=== PATIENT | female | born 1935 | race Caucasian/White ===

== ENCOUNTER 2018-01-29 10:34 | Emergency (ER) | payer MEDICARE, OTHER ==
[~2018-01-29] VITALS: Ht 157.5 cm; Wt 66.3 kg
[~2018-01-29 10:34] MED LIST: AMLODIPINE5 MG PO; AMOXICILLIN500 MG PO; ECOTRIN LOW STR81 MG PO; FUROSEMIDE20 MG PO; METOPROL TAR25 MG PO; NEXIUM40 M1 PO; NITROGLYCER0.4 MG/HR SL; PROAIR HFA IN; ROBITUSSIN AC10 ML PO; TEMAZEPAM30 MG PO; VYTORIN 10/401 TAB PO; WARFARIN2 MG PO; ZITHROMAX250 MG PO
[2018-01-29 11:37] LABS: INTERNATIONAL NORMALIZED RATIO 1.7 RATIO (0.7-1.3); PROTHROMBIN TIME 19.4 SECONDS (9.0-12.5)
[2018-01-29 12:04] VITALS: BP 131/71
== END 2018-01-29 12:12 | disposition home or self-care (01) ==
LOC: ED 10:34
PROVIDERS: Emergency Medicine
DX: S09.90XA Unspecified injury of head, initial encounter (principal); K44.9 Diaphragmatic hernia without obstruction or gangrene; I48.91 Unspecified atrial fibrillation; I10 Essential (primary) hypertension; W01.198A Fall on same level from slipping, tripping and stumbling with subsequent striking against other object, initial encounter; Y92.002 Bathroom of unspecified non-institutional (private) residence as the place of occurrence of the external cause; Z79.01 Long term (current) use of anticoagulants

== ENCOUNTER → 2018-11-19 | Outpatient (REF) | payer MEDICARE, OTHER ==
[2018-11-19 16:06] LABS: HEMATOCRIT 35.8 % (37.0-47.0); HEMOGLOBIN 11.7 g/dl (12.0-16.0); IMMATURE GRANULOCYTES 0.5 % (0.0-5.0); MEAN CELL VOLUME 101.7 fL CALC (80.0-100.0); MEAN CORPUSCULAR HGB 33.2 pG CALC (26.0-32.0); MEAN CORPUSCULAR HGB CONC 32.7 g/L CALC (32.0-36.0); NEUT# 8.68 thou/uL (2.00-7.15); RED BLOOD COUNT 3.52 mill/uL (4.20-5.60); RED CELL DISTRI WIDTH 13.7 % (11.5-15.5)
[2018-11-19 16:46] LABS: ANION GAP 15 (6-22 (CALC)); BUN 29 mg/dL (8-23); BUN/CREATININE RATIO 31 (12-20 (CALC)); CARBON DIOXIDE 28 mmol/l (22-30); CHLORIDE 102 mmol/l (95-108); CREATININE 0.9 mg/dL (0.5-1.0); GFR 60 ML/MIN (>=60 (CALC)); GFR FOR AFR.AMER. > 60 ML/MIN (>=60 (CALC)); POTASSIUM 4.2 mmol/l (3.5-5.1); SODIUM 141 mmol/l (137-146)
== END | disposition home or self-care (01) ==
LOC: LAB 15:36
PROVIDERS: ATTEND Nurse Practitioner Family
DX: R05 Cough (principal); R50.9 Fever, unspecified

== ENCOUNTER → 2018-12-03 | Outpatient (REF) | payer MEDICARE, OTHER ==
[2018-12-03 10:50] LABS: INTERNATIONAL NORMALIZED RATIO 1.8 RATIO (0.7-1.3); PROTHROMBIN TIME 18.6 SECONDS (9.0-12.5)
== END | disposition home or self-care (01) ==
LOC: CT 09:26
PROVIDERS: ATTEND Nurse Practitioner Family
DX: R91.1 Solitary pulmonary nodule (principal); Z85.118 Personal history of other malignant neoplasm of bronchus and lung; I48.2 Chronic atrial fibrillation; Z79.01 Long term (current) use of anticoagulants

== ENCOUNTER 2020-04-05 09:50 | Emergency (ER) | payer MEDICARE, OTHER ==
[~2020-04-05] VITALS: Ht 157.5 cm; Wt 62.7 kg
[2020-04-05 10:34] LABS: ALKALINE PHOSPHATASE 50 u/l (38-126); AMYLASE 35 u/l (30-110); BUN 48 mg/dL (8-23); BUN/CREATININE RATIO 71 (12-20 (CALC)); CHLORIDE 110 mmol/l (95-108); CREATININE 0.7 mg/dL (0.5-1.0); GFR > 60 ML/MIN (>=60 (CALC)); GFR FOR AFR.AMER. > 60 ML/MIN (>=60 (CALC)); LIPASE 156 u/l (23-300); SGOT/AST 23 u/l (9-36); SODIUM 137 mmol/l (137-146)
[2020-04-05 10:39] LABS: IMMATURE GRANULOCYTES 0.9 % (0.0-5.0); MEAN CELL VOLUME 104.8 fL CALC (80.0-100.0); MEAN CORPUSCULAR HGB 32.7 pG CALC (26.0-32.0); MEAN CORPUSCULAR HGB CONC 31.2 g/dL CAL (32.0-36.0); NEUT# 6.09 thou/uL (2.00-7.15); RED BLOOD COUNT 1.47 mill/uL (4.20-5.60); RED CELL DISTRI WIDTH 15.9 % (11.5-15.5)
[2020-04-05 10:43] LABS: ALBUMIN 3.3 g/dL (3.2-5.0); ANION GAP 8 (6-22 (CALC)); BILIRUBIN, TOTAL 0.4 mg/dL (0.0-1.4); CARBON DIOXIDE 22 mmol/l (22-30); INTERNATIONAL NORMALIZED RATIO 4.4 RATIO (0.7-1.3); POTASSIUM 3.4 mmol/l (3.5-5.1); PROTHROMBIN TIME 40.6 SECONDS (9.0-12.5); TOTAL PROTEIN 5.3 g/dL (6.3-8.2)
[2020-04-05 10:44] LABS: HEMATOCRIT 15.4 % (37.0-47.0); HEMOGLOBIN 4.8 g/dl (12.0-16.0)
[2020-04-05 10:47] LABS: MYOGLOBIN 32 ng/mL (0 - 62)
[2020-04-05 11:22] LABS: URINE BILIRUBIN - DIPSTICK NEGATIVE (NEGATIVE); URINE BLOOD DIPSTICK NEGATIVE (NEGATIVE); URINE COLOR YELLOW; URINE GLUCOSE - DIPSTICK NEGATIVE (NEGATIVE); URINE KETONE NEGATIVE (NEGATIVE); URINE LEUK ESTERASE NEGATIVE (NEGATIVE); URINE NITRITE - DIPSTICK NEGATIVE (Negative); URINE PROTEIN - DIPSTICK NEGATIVE (NEG-TRACE); URINE UROBILINOGEN - DIPSTICK 0.2 E.U./dL (0.2)
[2020-04-05] MEDS ORDERED: CLONIDINE0.1 MG TD (11:43)
[2020-04-05] MEDS ORDERED: ADALAT CC30 M1 (11:44)
[2020-04-05 11:47] VITALS: BP 98/45
[2020-04-05 12:32] VITALS: BP 102/51
[2020-04-05 13:36] VITALS: BP 128/48
[2020-04-05 13:47] VITALS: BP 112/47
[2020-04-05 14:01] VITALS: BP 102/49
[2020-04-05 16:10] VITALS: BP 112/47
== END 2020-04-05 14:10 | disposition short-term general hospital (02) ==
LOC: ED 09:50
PROVIDERS: Emergency Medicine
PROC: 30233N1 Transfusion of Nonautologous Red Blood Cells into Peripheral Vein, Percutaneous Approach (ICD-10-PCS; principal; 2020-04-05)
PROC: 30233N1 Transfusion of Nonautologous Red Blood Cells into Peripheral Vein, Percutaneous Approach (ICD-10-PCS; 2020-04-05)
DX: D64.9 Anemia, unspecified (principal); T45.515A Adverse effect of anticoagulants, initial encounter; I48.91 Unspecified atrial fibrillation; I10 Essential (primary) hypertension; J44.9 Chronic obstructive pulmonary disease, unspecified; Z79.01 Long term (current) use of anticoagulants; Z20.828 Contact with and (suspected) exposure to other viral communicable diseases
CPT/HCPCS: P9016; S0164

== ENCOUNTER 2020-07-20 11:08 | Inpatient (IN) | payer MEDICARE ==
[~2020-07-20] VITALS: Ht 154.9 cm; Wt 62.0 kg
[~2020-07-20 11:08] MED LIST changes: +ADALAT CC30 M1; +CLONIDINE0.1 MG TD
--- NOTE | 2020-07-20 11:38 | NUR ---
PT ARRIVED TO THE FLOOR, ACCOMPANIED BY FAMILY. VS OBTAINED, PT ORIENTED TO ROOM AND CALL COLIN SYSTEM. SAFETY PRECAUTIONS IN PLACE. WILL CONTINUE TO MONITOR.
[2020-07-20 11:40] VITALS: BP 154/71
--- NOTE | 2020-07-20 12:22 | NUR ---
PT RESTING IN BED, ALERT AND ORIENTED. RESPIRATIONS ARE EVEN AND UNLABORED ON RA. LUNGS SOUND CLEAR. PEDAL PULSES ARE WEAK. PT DENIES ANY PAIN OR DISCOMFORT AT THIS TIME. TELE IN PLACE. CALL COLIN WITHIN REACH. WILL CONTINUE TO MONITOR.
--- NOTE | 2020-07-20 13:50 | NUR ---
MONIKA POTTER AT BEDSIDE TO START IV, #22 RAC, PT TOLERATED WELL. LABS OBTAINED. SAFETY PRECAUTIONS IN PLACE. WILL CONTINUE TO MONITOR.
--- NOTE | 2020-07-20 13:56 | NUR ---
ST screen: ST is not needed at this time per SOTERO Johnson
[2020-07-20 13:58] LABS: HEMATOCRIT 25.3 % (37.0-47.0); HEMOGLOBIN 7.7 g/dl (12.0-16.0); IMMATURE GRANULOCYTES 0.4 % (0.0-5.0); MEAN CELL VOLUME 104.1 fL CALC (80.0-100.0); MEAN CORPUSCULAR HGB 31.7 pG CALC (26.0-32.0); MEAN CORPUSCULAR HGB CONC 30.4 g/dL CAL (32.0-36.0); NEUT# 3.82 thou/uL (2.00-7.15); RED BLOOD COUNT 2.43 mill/uL (4.20-5.60); RED CELL DISTRI WIDTH 13.5 % (11.5-15.5)
[2020-07-20 14:20] LABS: ALKALINE PHOSPHATASE 57 u/l (38-126); BUN 23 mg/dL (8-23); BUN/CREATININE RATIO 31 (12-20 (CALC)); CHLORIDE 102 mmol/l (95-108); CREATININE 0.7 mg/dL (0.5-1.0); GFR > 60 ML/MIN (>=60 (CALC)); GFR FOR AFR.AMER. > 60 ML/MIN (>=60 (CALC)); INTERNATIONAL NORMALIZED RATIO 1.5 RATIO (0.7-1.3); PROTHROMBIN TIME 14.9 SECONDS (9.0-12.5); SGOT/AST 26 u/l (9-36); SODIUM 136 mmol/l (137-146)
[2020-07-20 14:36] LABS: ALBUMIN 4.1 g/dL (3.2-5.0); ANION GAP 10 (6-22 (CALC)); BILIRUBIN, TOTAL 0.6 mg/dL (0.0-1.4); CARBON DIOXIDE 29 mmol/l (22-30); POTASSIUM 4.5 mmol/l (3.5-5.1); TOTAL PROTEIN 6.5 g/dL (6.3-8.2)
[2020-07-20] MEDS ORDERED: ISOSORBIDE MONO60 MG PO (15:46)
[2020-07-20] MEDS ORDERED: LASIX 40 MG TAB40 MG PO (15:47)
[2020-07-20] MEDS ORDERED: TOPROL XL100 MG PO (15:48)
[2020-07-20] MEDS ORDERED: MICARDIS80 MG PO (15:49)
[2020-07-20] MEDS ORDERED: WARFARIN2 MG PO (15:50)
[2020-07-20 16:00] VITALS: BP 123/56
--- NOTE | 2020-07-20 16:05 | NUR ---
PT UPDATED ON PLAN OF CARE. HGB 7.7 PT TO RECEIVE BLOOD. PT STATES UNDERSTANDING. SAFETY PRECAUTIONS IN PLACE. WILL CONTINUE TO MONITOR.
[2020-07-20 19:00] VITALS: BP 120/63
[2020-07-20 19:35] LABS: URINE BILIRUBIN - DIPSTICK NEGATIVE (NEGATIVE); URINE BLOOD DIPSTICK NEGATIVE (NEGATIVE); URINE CLARITY CLEAR; URINE COLOR YELLOW; URINE GLUCOSE - DIPSTICK NEGATIVE (NEGATIVE); URINE KETONE NEGATIVE (NEGATIVE); URINE LEUK ESTERASE NEGATIVE (Negative); URINE NITRITE - DIPSTICK NEGATIVE (Negative); URINE PROTEIN - DIPSTICK 30 mg/dL (NEG-TRACE); URINE SPECIFIC GRAVITY 1.025; URINE UROBILINOGEN - DIPSTICK 0.2 E.U./dL (0.2)
[2020-07-20 19:49] LABS: URINE RBC 0-2 RBC/hpf (0-5); URINE SQUAMOUS EPITHELIAL CELL FEW EPI/hpf (0-FEW); URINE WBC 0-2 WBC/hpf (0-5)
--- NOTE | 2020-07-20 20:01 | NUR ---
NURSING REPORT RECEIVED FROM NURSE. PT ASSESSMENT AND VITALS COMPLETE. PT RESTING IN BED WATCHING TV. ALERT AND ORIENTED. NO APPARENT DISTRESS NOTED. RESPIRATIONS EVEN AND UNLABORED ON RA. IV SITE APPEARS HEALTHY, PRESENTLY SL. PT DENIES ANY PAIN OR DISCOMFORT. CARDIAC SOUNDS HEARD, IRREGULAR; TELE MONITOR IN PLACE; AFIB 51 PER ED IT COMPLIANCE ANALYST. DISCUSSED POC AND SAFETY PRECAUTIONS. PT AWAITING BLOOD PRODUCT FOR ANEMIA, PT VERBALIZED UNDERSTANDING. NO CURRENT WANTS OR NEEDS. CALL LIGHT WITHIN REACH. WILL CONTINUE TO MONITOR.
--- NOTE | 2020-07-20 21:25 | NUR ---
PT RECEIVED FROM ED TO ROOM 271. ARRIVES VIA WC ACCOMPANIED BY ... RN. PT AMBULATORY TO BED. GAIT STEADY AND BALANCED. PT DENIES PAIN AT THIS TIME. ORIENTED TO UNIT, ROOM, CALL COLIN, LIGHTS, TV. ICE WATER PROVIDED. CALL COLIN WITHIN REACH. AGREES TO CALL PRN.
[2020-07-21] VITALS (12 sets, daily range): BP systolic 138–175; BP diastolic 61–94
--- NOTE | 2020-07-21 00:01 | NUR ---
PT LAYING IN BED WITH EYES CLOSED, APPEARS TO BE SLEEPING, APPEARS COMFORTABLE AND IN NO DISTRESS. RESPIRATIONS REGULAR AND UNLABORED. ITEMS REMAIN WITHIN REACH, CALL COLIN REMAINS WITHIN REACH. BED REMAINS LOCKED AND IN LOW POSITION WITH BEDRAILS UP X2. WILL CONTINUE TO MONITOR.
--- NOTE | 2020-07-21 00:15 | NUR ---
BLLOD TRANSFUSION ADMINISTERED AT 0113. WITH PT BEDSIDE FOR FIRST 15 MINUTES TO MONITOR. VITALS RECORDED PRIOR TO BLOOD ADMINISTRATION AND 15 INTO ADMINISTRATION. PT ASKED TO REPORT ANY ADVERSE REACTIONS SUCH PAIN AT IV SITE, CHILLS, DIZINESS, SKIN FLUSHING, SOB, BACK PAIN ORFLANK PAIN. WI;; CONTINUE TO CLOSELY MONITOR.
--- NOTE | 2020-07-21 01:15 | NUR ---
BLOOD TRANSFUSION ADMINISTERED AT 0113. NURSE PRESENT WITH PT BEDSIDE FOR FIRST 15 MINUTES TO MONITOR FOR ANY ADVERSE REACTIONS. VITALS RECORDED PRIOR TO BLOOD ADMINISTRATION. PT ASKED TO REPORT ANY ADVERSE REACTIONS SUCH PAIN AT IV SITE, CHILLS, DIZINESS, SKIN FLUSHING, SOB, BACK PAIN ORFLANK PAIN. WIll CONTINUE TO CLOSELY MONITOR.
--- NOTE | 2020-07-21 04:01 | NUR ---
PT RESTING IN BED, NO SIGNS OF DISTRESS NOTED, RESP EVEN AND UNLABORED. PT VOICES NO NEEDS OR COMPLAINTS AT THIS TIME. CALL LIGHT IN REACH,CONTINUE TO MONITOR.
--- NOTE | 2020-07-21 04:15 | NUR ---
PT INFUSING 2ND UNIT OF BLOOD WITH NO ADVERSE S&S. WILL CONTINUE TO MONITOR.
--- NOTE | 2020-07-21 07:00 | NUR ---
REPORT RECEIVED FROM JACKIE GÓMEZ. PT RESTING IN BED, NO S/S OF DISTRESS AT THIS TIME. SAFETY PRECAUTIONS IN PLACE. WILL CONTINUE TO MONITOR.
--- NOTE | 2020-07-21 07:17 | NUR ---
PT RESTING IN BED, ALERT AND ORIENTED. RESPIRATIONS ARE EVEN AND UNLABORED ON RA, LUNGS SOUND CLEAR. PEDAL PULSES ARE WEAK. PT DENIES ANY PAIN OR DISCOMFORT AT THIS TIME. TELE IN PLACE. CALL COLIN WITHIN REACH. WILL CONTINUE TO MONITOR.
--- NOTE | 2020-07-21 10:54 | NUR ---
PT ARRIVED TO THE FLOOR VIA WHEELCHAIR, ACCOMPANIED BY ED STAFF. PT IS ALERT AND ORIENTED. PT ASSISTED FROM WHEELCHAIR TO BED. VS OBTAINED AND ASSESSMENT COMPLETED. RESPIRATIONS ARE EVEN AND UNLABORED ON O2 @ 2L VIA NC, LUNGS SOUND DIMINISHED. PEDAL PULSES ARE WEAK. PT REPORTS MILD PAIN UNDER R BREAST WHEN INHALING. TELE IN PLACE. PT ORIENTED TO ROOM AND CALL COLIN SYSTEM. SAFETY PRECAUTIONS IN PLACE. WILL CONTINUE TO MONITOR.
[2020-07-21 11:36] LABS: MEAN CORPUSCULAR HGB 29.2 pG CALC (26.0-32.0); MEAN CORPUSCULAR HGB CONC 30.3 g/dL CAL (32.0-36.0); RED BLOOD COUNT 3.77 mill/uL (4.20-5.60); RED CELL DISTRI WIDTH 19.6 % (11.5-15.5)
[2020-07-21 11:37] LABS: HEMATOCRIT 36.3 % (37.0-47.0); MEAN CELL VOLUME 96.3 fL CALC (80.0-100.0)
[2020-07-21 11:59] LABS: ALBUMIN 4.1 g/dL (3.2-5.0); ALKALINE PHOSPHATASE 61 u/l (38-126); ANION GAP 9 (6-22 (CALC)); BUN 19 mg/dL (8-23); BUN/CREATININE RATIO 27 (12-20 (CALC)); CARBON DIOXIDE 25 mmol/l (22-30); CHLORIDE 105 mmol/l (95-108); CREATININE 0.7 mg/dL (0.5-1.0); GFR > 60 ML/MIN (>=60 (CALC)); GFR FOR AFR.AMER. > 60 ML/MIN (>=60 (CALC)); MAGNESIUM 2.1 mg/dL (1.6-2.3); POTASSIUM 4.5 mmol/l (3.5-5.1); SGOT/AST 39 u/l (9-36); SODIUM 135 mmol/l (137-146); TOTAL PROTEIN 6.7 g/dL (6.3-8.2)
[2020-07-21 12:01] LABS: BILIRUBIN, TOTAL 1.5 mg/dL (0.0-1.4)
--- NOTE | 2020-07-21 12:05 | NUR ---
PT RESTING IN BED, NO S/S OF DISTRESS AT THIS TIME. SAFETY PRECAUTIONS IN PLACE. WILL CONTINUE TO MONITOR.
[2020-07-21 14:42] LABS: INTERNATIONAL NORMALIZED RATIO 1.5 RATIO (0.7-1.3); PROTHROMBIN TIME 14.4 SECONDS (9.0-12.5)
--- NOTE | 2020-07-21 16:07 | NUR ---
PT RESTING IN BED, DAUGHTER AT BEDSIDE VISITING. PT DENIES ANY PAIN OR DISCOMFORT AT THIS TIME. SAFETY PRECAUTIONS IN PLACE. WILL CONTINUE TO MONITOR.
--- NOTE | 2020-07-21 20:01 | NUR ---
ASSIGNMENT ACCEPTED FROM NURSE MARIETTA. ASSESSMENT AND VITALS COMPLETED AT THIS TIME. RESPIRATIONS ARE EVEN AND UNLABORED PRESENTLY ON ROOM AIR. HEART RHYTHM IS IRREGULAR/AFIB WITH TELE IN PLACE. BOWEL SOUNDS ARE ACTIVE IN ALL QUADRANTS, LAST REPORTED BM 07/21/2020. RADIAL AND PEDAL PULSES ARE STRONG WITH NORMAL CAPILLARY REFILL. #22G IN RFA, SITE APPEARS HEALTHY AND PATENT. PT REQUEST PRN SLEEPING PILL; PT DENIES OF ANY PAIN OR DISCOMFORTS AT THIS TIME. ALL SAFETY PRECAUTIONS ARE IN PLACE WITH CALL LIGHT IN REACH. WILL CONTINUE TO MONITOR.
[2020-07-22 00:22] VITALS: BP 162/78
[2020-07-22 03:50] VITALS: BP 155/73
[2020-07-22 05:41] LABS: HEMATOCRIT 35.8 % (37.0-47.0); MEAN CELL VOLUME 95.2 fL CALC (80.0-100.0); MEAN CORPUSCULAR HGB 29.3 pG CALC (26.0-32.0); MEAN CORPUSCULAR HGB CONC 30.7 g/dL CAL (32.0-36.0); RED BLOOD COUNT 3.76 mill/uL (4.20-5.60); RED CELL DISTRI WIDTH 18.8 % (11.5-15.5)
[2020-07-22 06:00] LABS: ANION GAP 11 (6-22 (CALC)); BUN 18 mg/dL (8-23); BUN/CREATININE RATIO 30 (12-20 (CALC)); CARBON DIOXIDE 27 mmol/l (22-30); CHLORIDE 103 mmol/l (95-108); CREATININE 0.6 mg/dL (0.5-1.0); GFR > 60 ML/MIN (>=60 (CALC)); GFR FOR AFR.AMER. > 60 ML/MIN (>=60 (CALC)); POTASSIUM 4.4 mmol/l (3.5-5.1); SODIUM 137 mmol/l (137-146)
[2020-07-22 06:07] LABS: INTERNATIONAL NORMALIZED RATIO 1.4 RATIO (0.7-1.3); PROTHROMBIN TIME 13.4 SECONDS (9.0-12.5)
--- NOTE | 2020-07-22 07:15 | NUR ---
PT TAKEN TO THE OR VIA STRETCHER. A&O X3. DAUGHTER AT BEDSIDE. NO DISTRESS NOTED. SLOW BUT STEADY GAIT OBSERVED.
--- NOTE | 2020-07-22 09:20 | NUR ---
PT ARRIVED TO MS VIA STRETCHER ACCOMAPNIED BY MEGHANN MANAGER OF CARE. A&O X3. NO DISTRESS NOTED. PT REPORTS TO BE FEELING "OKAY" NO S/S OF RESPIRATORY DISTRESS, PT CURRENTLY REMAINS ON ROOM AIR AT THIS TIME. SLOW BUT STEADY GAIT OBSERVED. PALE APPEARANCE NOTED. DAUGHTER REMAINS AT BEDSIDE. DISCUSSED POC. CALL LIGHT IN REACH. CONTINUE TO MONITOR. CALL LIGHT IN REACH. CONTINUE TO MONITOR.
[2020-07-22 09:40] VITALS: BP 185/87
[2020-07-22 10:30] VITALS: BP 172/80
[2020-07-22] MEDS ORDERED: NEXIUM40 M1 PO (10:36)
[2020-07-22 12:38] VITALS: BP 154/81
--- NOTE | 2020-07-22 12:54 | NUR ---
Discharge instructions given. Patient verbalizes understanding of same. Discharged in stable condition via wheelchair to home accompanied by Stefany SMITHA and daughter. Pt enouraged to return if symptoms worsen or if new symptoms arise. All belongings sent with pt.
== END 2020-07-22 12:54 | disposition home or self-care (01) | DRG 811 ==
LOC: MS2 11:08
PROVIDERS: Nurse Practitioner; ADMIT Internal Medicine; ATTEND Internal Medicine
PROC: 30233N1 Transfusion of Nonautologous Red Blood Cells into Peripheral Vein, Percutaneous Approach (ICD-10-PCS; principal; 2020-07-21)
PROC: 30233N1 Transfusion of Nonautologous Red Blood Cells into Peripheral Vein, Percutaneous Approach (ICD-10-PCS; 2020-07-21)
PROC: 3E02340 Introduction of Influenza Vaccine into Muscle, Percutaneous Approach (ICD-10-PCS; 2020-07-21)
PROC: 0W3P8ZZ Control Bleeding in Gastrointestinal Tract, Via Natural or Artificial Opening Endoscopic (ICD-10-PCS; 2020-07-22)
DX: D62 Acute posthemorrhagic anemia (principal); K31.811 Angiodysplasia of stomach and duodenum with bleeding; K29.71 Gastritis, unspecified, with bleeding; I48.20 Chronic atrial fibrillation, unspecified; K44.9 Diaphragmatic hernia without obstruction or gangrene; I10 Essential (primary) hypertension; J44.9 Chronic obstructive pulmonary disease, unspecified; K21.9 Gastro-esophageal reflux disease without esophagitis; Z86.79 Personal history of other diseases of the circulatory system; Z95.1 Presence of aortocoronary bypass graft; Z79.01 Long term (current) use of anticoagulants; Z23 Encounter for immunization; Z20.828 Contact with and (suspected) exposure to other viral communicable diseases; I48.91 Unspecified atrial fibrillation; D64.9 Anemia, unspecified
CPT/HCPCS: P9016; S0164

== ENCOUNTER 2020-10-22 11:21 | Inpatient (IN) | payer MEDICARE, OTHER ==
[~2020-10-22] VITALS: Ht 154.9 cm; Wt 61.2 kg
[~2020-10-22 11:21] MED LIST changes: +ISOSORBIDE MONO60 MG PO; +LASIX 40 MG TAB40 MG PO; +MICARDIS80 MG PO; +TOPROL XL100 MG PO
--- NOTE | 2020-10-22 11:37 | NUR ---
PT TO ROOM FOR EXAM PER W/C WITH FAMILY
[2020-10-22 12:20] LABS: URINE BLOOD DIPSTICK TRACE-INTACT (NEGATIVE); URINE COLOR YELLOW; URINE GLUCOSE - DIPSTICK NEGATIVE (NEGATIVE); URINE KETONE NEGATIVE (NEGATIVE); URINE NITRITE - DIPSTICK NEGATIVE (Negative); URINE PH 5.5 (4.5-8.0); URINE PROTEIN - DIPSTICK 30 mg/dL (NEG-TRACE); URINE SPECIFIC GRAVITY >=1.030; URINE UROBILINOGEN - DIPSTICK 0.2 E.U./dL (0.2)
[2020-10-22 12:27] LABS: URINE BILIRUBIN - DIPSTICK SMALL (NEGATIVE); URINE LEUK ESTERASE SMALL (NEGATIVE)
[2020-10-22 12:30] LABS: URINE BACTERIA FEW hpf; URINE EPITHELIAL CELLS MODERATE EPI/hpf (0-FEW); URINE RBC 0-2 RBC/hpf (0-5)
[2020-10-22 13:05] LABS: HEMATOCRIT 27.9 % (37.0-47.0); HEMOGLOBIN 8.7 g/dl (12.0-16.0); IMMATURE GRANULOCYTES 0.5 % (0.0-5.0); MEAN CELL VOLUME 106.9 fL CALC (80.0-100.0); MEAN CORPUSCULAR HGB 33.3 pG CALC (26.0-32.0); MEAN CORPUSCULAR HGB CONC 31.2 g/dL CAL (32.0-36.0); NEUT# 3.73 thou/uL (2.00-7.15); RED BLOOD COUNT 2.61 mill/uL (4.20-5.60); RED CELL DISTRI WIDTH 16.4 % (11.5-15.5)
[2020-10-22 13:27] LABS: ACT PARTIAL THROMBO TIME 26.5 SECONDS (20.0-32.5); INTERNATIONAL NORMALIZED RATIO 1.8 RATIO (0.7-1.3); PROTHROMBIN TIME 17.3 SECONDS (9.0-12.5)
[2020-10-22 13:29] LABS: ALBUMIN 4.1 g/dL (3.2-5.0); ALKALINE PHOSPHATASE 64 u/l (38-126); ANION GAP 12 (6-22 (CALC)); BILIRUBIN, TOTAL 1.1 mg/dL (0.0-1.4); BUN 23 mg/dL (8-23); BUN/CREATININE RATIO 21 (12-20 (CALC)); CARBON DIOXIDE 29 mmol/l (22-30); CHLORIDE 97 mmol/l (95-108); CREATININE 1.1 mg/dL (0.5-1.0); GFR 47 ML/MIN (>=60 (CALC)); GFR FOR AFR.AMER. 57 ML/MIN (>=60 (CALC)); POTASSIUM 3.4 mmol/l (3.5-5.1); SGOT/AST 27 u/l (9-36); SODIUM 134 mmol/l (137-146); TOTAL PROTEIN 6.8 g/dL (6.3-8.2)
[2020-10-22] MEDS ORDERED: NEXIUM40 M1 PO (14:34)
[2020-10-22] MEDS ORDERED: WARFARIN2 MG PO (14:35)
--- NOTE | 2020-10-22 16:00 | NUR ---
PT AWARE OF PENDING ADMISSION PER DR BOX. PT RECEIVING ANTIBIOTICS ORDERED. PT PROVIDED BSC, ABLE TO USE WITH ASSIST FROM DAUGHTER.
--- NOTE | 2020-10-22 18:01 | NUR ---
PT HAS RECEIVED NUMEROUS ANTIBIOTICS TODAY, INCLUDING VANCO, ROCEPHIN, ZOSYN, AND ZITHROMAX. DURING THE INFUSION OF THE ZITHROMAX PT EXPERIENCED A NEAR SYNCOPAL EPISODE. DAUGHTER AT BEDSIDE SAYS THAT HER FACE TURNED RED AND THAT SHE STOPPED BREATHING. DR BOX RESPONDED, PROVIDED ORDERS FOR ZOFRAN AND SOLUMEDROL. PT WITH SUPPLEMENTAL OXYGEN PLACED AT 2 LPM NC. STRETCHER HAS BEEN PLACED IN TRENDELENBERG PER LOW BLOOD PRESSURE IN THE 80-[address] SCHULTZ WAS CONTACTED, INSTRUCTED CLOSE WATCH ON PT AND ADD ZITHROMAX TO ALLERGY LIST. PT FEELS BETTER AT THIS TIME, BP IN THE 90s. SHE TRIED TO EAT BUT ONLY ATE SOME BREAD. PT IS A PICKY EATER.
--- NOTE | 2020-10-22 19:05 | NUR ---
A/OX3 W/PP/DRY SKIN SR NO ECTOPY NO ST T CHANGES.GCS 15 NO FOCAL WEAKNWESSES SPEECH IOS CLEAR AND APPROPRIATE DENIES PAIN NO NAUSEA.
[2020-10-22 20:41] LABS: PROTHROMBIN TIME 19.1 SECONDS (9.0-12.5)
--- NOTE | 2020-10-22 20:43 | NUR ---
A/OX3 W P D SKIN SR NO ECTOPY GCS REMAINS UNCHANGED AT 15 NO FOCAL WEAKNESSES
--- NOTE | 2020-10-22 21:45 | NUR ---
PT TRANSFERRED TO HOSP BED GCS 15 UNCHANGED NO FOCAL DEFICITS SPEECH CLEAR
--- NOTE | 2020-10-22 22:40 | NUR ---
PER PT'S REQUEST TYLENOL ESTEFANI SWARTZADANDREAL HER USUAL MED TO HELP HER SLEEP BY DR PEREIRA.SPEECH CLEAR NO FOCAL DEFICITS.W/P/D SKIN
--- NOTE | 2020-10-22 23:38 | NUR ---
AWAKENED FROM SLEEP SR NO ECTOPY NO ST T CHANGES W/PP/D SKIN GCS 15 WITH NO FOCAL DEFICITS SPEECH IS CLEAR
--- NOTE | 2020-10-23 02:01 | NUR ---
UP TO COMMODE WITH ASSISTANCE TO VOID. VOIDED 350 MLS CLEAR YELLOW URINE WITHOUT DIFFICULTY. ASSISTED BACK TO BED, SIDE RAILS UP X 2. CALL COLIN WITHIN REACH. ENCOURAGED TO CALL WITH NEEDS.
[2020-10-23 06:55] LABS: HEMOGLOBIN 8.7 g/dl (12.0-16.0); IMMATURE GRANULOCYTES 0.9 % (0.0-5.0); MEAN CELL VOLUME 107.3 fL CALC (80.0-100.0); MEAN CORPUSCULAR HGB 33.3 pG CALC (26.0-32.0); MEAN CORPUSCULAR HGB CONC 31.1 g/dL CAL (32.0-36.0); NEUT# 2.88 thou/uL (2.00-7.15); RED BLOOD COUNT 2.61 mill/uL (4.20-5.60); RED CELL DISTRI WIDTH 16.6 % (11.5-15.5)
--- NOTE | 2020-10-23 07:00 | NUR ---
RECEIVED REPORT FROM TARYN MEJIA.
[2020-10-23 07:13] LABS: ALBUMIN 3.9 g/dL (3.2-5.0); BILIRUBIN, TOTAL 0.9 mg/dL (0.0-1.4); CREATININE 1.1 mg/dL (0.5-1.0); TOTAL PROTEIN 6.4 g/dL (6.3-8.2)
[2020-10-23 07:14] LABS: POTASSIUM 4.6 mmol/l (3.5-5.1)
--- NOTE | 2020-10-23 07:31 | NUR ---
MEDICATED WITH TYLENOL 650MG PO FOR C/O 5/10 HEADACHE.
--- NOTE | 2020-10-23 09:20 | NUR ---
DR SCHULTZ AT BEDSIDE.
[2020-10-23 12:00] VITALS: BP 135/77
--- NOTE | 2020-10-23 12:11 | NUR ---
ASSISTED TO BEDSIDE COMMODE WITH STAND BY ASSIST. RESPS EVEN AND UNLABORED ON ROOM AIR, VSS, MONITORS ATTACHED. DENIES PAIN OR DISCOMFORT. CALL LIGHT WITHIN REACH. WILL CONTINUE TO MONITOR.
[2020-10-23 16:00] VITALS: BP 115/83
--- NOTE | 2020-10-23 16:08 | NUR ---
REPORT CALLED TO ABBEY FRANK.
--- NOTE | 2020-10-23 16:15 | NUR ---
REPORT RECEIVED FROM JACKIE HILLMAN.
--- NOTE | 2020-10-23 16:20 | NUR ---
TO MED SURG VIA BED. TELE MONITOR IN PLACE.
[2020-10-23 16:29] VITALS: BP 122/64
--- NOTE | 2020-10-23 16:29 | NUR ---
PT ARRIVED TO MED/SURG ROOM 270 IN STABLE CONDITION VIA HOSPITAL BED;VS OBTAINED AND ASSESSMENT COMPLETED;PT A&O X3, ORIENTED TO ROOM AND CALL LIGHT SYSTEM;PT DENIES ANY CURRENT PAIN OR DISCOMFORTS,PAIN SCALE AND REPORTING EDUCATED;RESPIRATIONS EVEN AND UNLABORED ON RA,CLEAR LUNG SOUNDS;ABDOMEN SOFT ON PALPATION AND ACTIVE IN ALL 4 QUADRANTS,LAST BM 10/23/20;STRONG PEDAL PULSES;SKIN INTACT;TELE MONITORING IN PLACE;#20G TO RAC FLUSHED AND PATENT,SITE APPEARS HEALTHY;FALL AND ALLERGY BAND APPLIED TO RIGHT ARM;PT DENIES ANY ADDITIONAL NEEDS AT THIS TIME;ENCOURAGED TO CALL FOR ASSISTANCE IF NEEDED;FALL PRECAUTIONS IN PLACE WITH BED IN THE LOWEST POSITION AND CALL LIGHT IN REACH;WILL CONTINUE TO MONITOR
--- NOTE | 2020-10-23 17:05 | NUR ---
ER BENEFITS SPECIALIST, JAIME NOTIFIED WRITTER OF 10 BEAT RUN OF V-TACH;PT ASYMPTOMATIC AT THIS TIME; NOTIFIED. NO NEW ORDERS RECEIVED;WILL CONTINUE TO MONITOR
--- NOTE | 2020-10-23 17:39 | NUR ---
UPDATED DAUGHTER JORGE ON POC AND PT BEING TRANSFERRED TO MED/SURG ROOM 270. JORGE NUMBER [phone].
[2020-10-23 18:46] VITALS: BP 135/74
[2020-10-23 19:05] VITALS: BP 135/74
--- NOTE | 2020-10-23 20:00 | NUR ---
ASSESSMENT COMPLETED AT THIS TIME. NO S/O DISTRESS NOTED. CALL LIGHT AT SIDE AND PT ENCOURAGED TO CALL IF ANY NEEDS ARISE. I PLUGGED PTS PHONE BIN PACKER IN FOR HER. SHE IS AWAKE AND WATCHING TV AT THIS TIME.
--- NOTE | 2020-10-24 | NUR ---
AMMONIA DISTILLER REPORTED THAT PT CALLED HER TO THE ROOM TO ASK FOR ANOTHER SLEEPING PILL, PT WAS INFORMED THAT THEY ARE PRESCRIBED ONE PER NIGHT ONLY, PT VERBALIZED UNDERSTANDING AND ASKED FOR HER DOOR TO BE CLOSED. PT HAS BEEN LOCX4 AND STABLE ON FEET SO DOOR WAS CLOSED, BUT WE DID STILL ASK FOR HER TO CALL FOR ASSISTANCE WALKING TO RESTROOM FOR SAFETY. CALL LIGHT WITHIN REACH.
[2020-10-24 00:09] VITALS: BP 113/67
[2020-10-24 04:30] VITALS: BP 118/74
--- NOTE | 2020-10-24 04:50 | NUR ---
PT SLEEPING, NO S/O DISTRESS NOTED.
[2020-10-24 05:31] LABS: HEMATOCRIT 31.2 % (37.0-47.0); HEMOGLOBIN 9.5 g/dl (12.0-16.0); MEAN CORPUSCULAR HGB 32.9 pG CALC (26.0-32.0); MEAN CORPUSCULAR HGB CONC 30.4 g/dL CAL (32.0-36.0); RED BLOOD COUNT 2.89 mill/uL (4.20-5.60); RED CELL DISTRI WIDTH 16.9 % (11.5-15.5)
[2020-10-24 06:07] LABS: ALBUMIN 3.9 g/dL (3.2-5.0); BILIRUBIN, TOTAL 0.7 mg/dL (0.0-1.4); CREATININE 1.6 mg/dL (0.5-1.0); POTASSIUM 4.5 mmol/l (3.5-5.1); TOTAL PROTEIN 6.3 g/dL (6.3-8.2)
[2020-10-24 07:37] VITALS: BP 118/60
--- NOTE | 2020-10-24 07:37 | NUR ---
PATIENT LAYING BED AT THIS DENIES ANY PAIN CURRENTLY. MANAGER SALES TRAINING DONE SEE INTERVENIONS. SIDERAILS ARE UP X 2 CALL LIGHT WITHIN REACH.TELE IN PLACE AND BEING MONITORED BY ED
[2020-10-24 10:52] VITALS: BP 107/77
--- NOTE | 2020-10-24 11:44 | NUR ---
PATIENT RESTING IN BED DENEIS ANY NEEDS AT THIS TIME CALL LIGHT WITHIN REACH SIDERAILS UP X 2.
[2020-10-24 15:10] VITALS: BP 122/76
--- NOTE | 2020-10-24 15:50 | NUR ---
PATIENT RESTING IN BED DENIES ANY NEEDS AT THIS TIME. IV LEAKING AND REMOVED AND NEW IV TO BE STARTED. SIDERAILS ARE UP X 2 CALL LIGHT IS WITHIN REACH.
[2020-10-24 19:00] VITALS: BP 118/71
--- NOTE | 2020-10-24 20:15 | NUR ---
PT ASSESSMENT COMPLETED AT THIS TIME. NO S/O DISTRESS NOTED. PT REPORTS FEELING "A LITTLE BETTER" THAN WHEN SHE CAME IN.
--- NOTE | 2020-10-24 20:50 | NUR ---
PT MEDICATED ORDERS PROVIDE. NO S/O DISTRESS AT THIS TIME. CALL LIGHT AT SIDE AND PT ENCOURAGED TO CALL.
--- NOTE | 2020-10-25 00:15 | NUR ---
PT IS SLEEPING, NO S/O DISTRESS NOTED. CALL LIGHT AT SIDE.
--- NOTE | 2020-10-25 04:25 | NUR ---
PSYCHIATRY PHYSICIAN IN W/PT AT THIS TIME OBTAINING V/S. NO S/O DISTRESS NOTED. PT DENIES ANY NEEDS AT THIS TIME.
[2020-10-25 04:34] VITALS: BP 128/71
[2020-10-25 07:04] LABS: HEMATOCRIT 30.1 % (37.0-47.0); HEMOGLOBIN 9.2 g/dl (12.0-16.0); MEAN CELL VOLUME 109.1 fL CALC (80.0-100.0); MEAN CORPUSCULAR HGB 33.3 pG CALC (26.0-32.0); MEAN CORPUSCULAR HGB CONC 30.6 g/dL CAL (32.0-36.0); RED BLOOD COUNT 2.76 mill/uL (4.20-5.60); RED CELL DISTRI WIDTH 17.1 % (11.5-15.5)
[2020-10-25 07:15] LABS: INTERNATIONAL NORMALIZED RATIO 2.1 RATIO (0.7-1.3); PROTHROMBIN TIME 20.1 SECONDS (9.0-12.5)
[2020-10-25 07:28] LABS: ALBUMIN 3.8 g/dL (3.2-5.0); BILIRUBIN, TOTAL 0.7 mg/dL (0.0-1.4); CREATININE 1.3 mg/dL (0.5-1.0); TOTAL PROTEIN 6.1 g/dL (6.3-8.2)
[2020-10-25 07:47] VITALS: BP 128/72
--- NOTE | 2020-10-25 07:47 | NUR ---
PATIETN RESTING IN BED AT THIS TIME. PATIENT DENIES ANY NEEDS AND STATED "I FEEL REALLY GOOD TODAY". NON FOOD RECEIVING CLERK DONE AT THIS TIME CALL LIGHT IS WITHIN REACH SIDERAILS UP X 2. TELE MONITOR IN PLACE AND BEING MONITORED BY ED.
[2020-10-25 07:59] VITALS: BP 128/72
--- NOTE | 2020-10-25 08:05 | NUR ---
Patient is screened for intervention and would benefit from PT OT and ST consults
[2020-10-25] MEDS ORDERED: DOXYCYCL HYC100 MG PO (11:56)
[2020-10-25] MEDS ORDERED: KEFLEX500 M1 PO (11:56)
[2020-10-25] MEDS ORDERED: FLORASTOR250 M1 PO (11:56)
--- NOTE | 2020-10-25 12:26 | NUR ---
PATIENT SITTING UP AT BEDSIDE DENIES ANY NEEDS AT THIS TIME CALL LIGHT WITHIN REACH.
--- NOTE | 2020-10-25 14:46 | NUR ---
PATIENT D/C AT THIS TIME. PATIENT VERBALIZES UNDERSTANDING OF D/C INSTRUCTIONS.
--- NOTE | 2020-10-25 15:15 | NUR ---
Discharge instructions given. Patient verbalizes understanding of same. Discharged in stable condition via Wheelchair to Home with family. All belongings sent with pt. PATIENT WILL HAVE [facility] AT HOME.
== END 2020-10-25 15:15 | disposition home health service (06) | DRG 194 ==
LOC: ED 11:21 → ED-I 13:47 → ED 13:54 → MS2 13:55 → ED-I 13:55 → MS2 10-23 15:51
PROVIDERS: Nurse Practitioner Family; Student in an Organized Health Care Education/Training Program; ADMIT Internal Medicine; ATTEND Internal Medicine
DX: J18.9 Pneumonia, unspecified organism (principal); N39.0 Urinary tract infection, site not specified; J44.0 Chronic obstructive pulmonary disease with (acute) lower respiratory infection; I48.20 Chronic atrial fibrillation, unspecified; N17.9 Acute kidney failure, unspecified; I10 Essential (primary) hypertension; E86.0 Dehydration; D64.9 Anemia, unspecified; K44.9 Diaphragmatic hernia without obstruction or gangrene; T78.40XA Allergy, unspecified, initial encounter; T36.3X5A Adverse effect of macrolides, initial encounter; K21.9 Gastro-esophageal reflux disease without esophagitis; B96.1 Klebsiella pneumoniae [K. pneumoniae] as the cause of diseases classified elsewhere; Z79.01 Long term (current) use of anticoagulants; Z95.1 Presence of aortocoronary bypass graft; Z86.79 Personal history of other diseases of the circulatory system; Z95.818 Presence of other cardiac implants and grafts; Z20.822 Contact with and (suspected) exposure to COVID-19

== ENCOUNTER 2020-10-27 10:59 | Inpatient (IN) | payer MEDICARE, OTHER ==
[~2020-10-27] VITALS: Ht 154.9 cm; Wt 59.9 kg
[~2020-10-27 10:59] MED LIST changes: +DOXYCYCL HYC100 MG PO; +FLORASTOR250 M1 PO; +KEFLEX500 M1 PO; +WARFARIN4 MG PO
--- NOTE | 2020-10-27 11:38 | NUR ---
PATIENT ARRIVEED TO UNIT. DIRECT ADMIT
--- NOTE | 2020-10-27 12:00 | NUR ---
IV PLACED, VITALS TAKEN. NO TELE PACK AVAILABLE AT THIS TIME
[2020-10-27 12:15] VITALS: BP 162/88
[2020-10-27 12:28] LABS: MEAN CELL VOLUME 106.7 fL CALC (80.0-100.0); MEAN CORPUSCULAR HGB 33.3 pG CALC (26.0-32.0); MEAN CORPUSCULAR HGB CONC 31.3 g/dL CAL (32.0-36.0); RED CELL DISTRI WIDTH 16.6 % (11.5-15.5)
[2020-10-27 12:36] LABS: URINE BILIRUBIN - DIPSTICK NEGATIVE (NEGATIVE); URINE BLOOD DIPSTICK NEGATIVE (NEGATIVE); URINE COLOR YELLOW; URINE GLUCOSE - DIPSTICK NEGATIVE (NEGATIVE); URINE KETONE NEGATIVE (NEGATIVE); URINE LEUK ESTERASE TRACE (Negative); URINE NITRITE - DIPSTICK NEGATIVE (Negative); URINE PROTEIN - DIPSTICK 30 mg/dL (NEG-TRACE); URINE UROBILINOGEN - DIPSTICK 0.2 E.U./dL (0.2)
[2020-10-27 12:38] LABS: URINE CLARITY SL CLOUDY
[2020-10-27 12:39] LABS: URINE EPITHELIAL CELLS MANY EPI/hpf (0-FEW); URINE WBC 0-2 WBC/hpf (0-5)
[2020-10-27 12:48] LABS: ALKALINE PHOSPHATASE 79 u/l (38-126); ANION GAP 12 (6-22 (CALC)); BUN 30 mg/dL (8-23); BUN/CREATININE RATIO 32 (12-20 (CALC)); CARBON DIOXIDE 27 mmol/l (22-30); CHLORIDE 101 mmol/l (95-108); CREATININE 0.9 mg/dL (0.5-1.0); GFR 60 ML/MIN (>=60 (CALC)); GFR FOR AFR.AMER. > 60 ML/MIN (>=60 (CALC)); POTASSIUM 3.7 mmol/l (3.5-5.1); SGOT/AST 33 u/l (9-36); SODIUM 136 mmol/l (137-146); TOTAL PROTEIN 6.5 g/dL (6.3-8.2)
[2020-10-27 12:49] LABS: BILIRUBIN, TOTAL 1.1 mg/dL (0.0-1.4)
[2020-10-27 12:56] LABS: PROTHROMBIN TIME 28.1 SECONDS (9.0-12.5)
[2020-10-27 16:00] VITALS: BP 171/94
--- NOTE | 2020-10-27 16:00 | NUR ---
PATIENT DAUGHTER DROPPED OF SNACKS, LABELED AND PUT IN FRIDGE
--- NOTE | 2020-10-27 16:00 | NUR ---
BEDSIDE CHEST XRAY SHOWS NO FLUID OVERLOAD AND PNEUMONIA IN LOWER BASES
--- NOTE | 2020-10-27 17:19 | NUR ---
TELEPACK PLACED ON PATIENT
[2020-10-27 17:48] VITALS: BP 157/88
--- NOTE | 2020-10-27 18:42 | NUR ---
ORDER FOR ZOSYN FAXED TO PHARMACY, NO ZOSYN LEFT BY PHARMACY FOR PATIENT
[2020-10-27 19:00] VITALS: BP 174/94
--- NOTE | 2020-10-27 19:45 | NUR ---
PT SON CALLED FOR UPDATE PASSCODE PROVIDED TO NURSE. SONS CONCERN FOR PT RETAINING URINE, BLADDER SCANNED AT THIS TIME. 35ML NOTED, POST VOID. NO BLADDER DISTENSION NOTED. PT DENIES ANY PAIN OR DISCOMFORT AT THIS TIME.
--- NOTE | 2020-10-27 20:08 | NUR ---
PHARMACY CALLED ABOUT UNVERIFIED IV LASIX ORDER. SPOKE WITH JERRY WILL CALL BACK.
--- NOTE | 2020-10-27 20:33 | NUR ---
RESPOOLER CALLED SON BACK TO UPDATE ON BLADDER SCAN RESULTS.
[2020-10-27 22:18] VITALS: BP 152/71
[2020-10-27 23:00] VITALS: BP 154/82
--- NOTE | 2020-10-28 00:59 | NUR ---
IV ABT INITIATED. IV FLUSHED WITHOUT DIFFICULTY. PT DENIES ANY PAIN OR DISCOMFORT. PT HAS BEEN OOB SEVERAL TIMES TO VOID. NO APPARENT DISTRESS NOTED. RESPIRATIONS EVEN AND UNLABORED. DENIES ANY CURRENT WANTS OR NEEDS. CALL LIGHT WITHIN REACH. WILL CONTINUE TO MONITOR.
--- NOTE | 2020-10-28 03:58 | NUR ---
PT RESTING IN BED WITH EYES CLOSED. NO APPARENT DISTRESS NOTED. RESPIRATIONS EVEN AND UNLABORED. CALL LIGHT WITHIN REACH. WILL CONTINUE TO MONITOR.
[2020-10-28 04:00] VITALS: BP 151/81
[2020-10-28 05:28] LABS: HEMATOCRIT 31.5 % (37.0-47.0); HEMOGLOBIN 9.9 g/dl (12.0-16.0); MEAN CELL VOLUME 106.4 fL CALC (80.0-100.0); MEAN CORPUSCULAR HGB 33.4 pG CALC (26.0-32.0); MEAN CORPUSCULAR HGB CONC 31.4 g/dL CAL (32.0-36.0); RED BLOOD COUNT 2.96 mill/uL (4.20-5.60); RED CELL DISTRI WIDTH 16.7 % (11.5-15.5)
[2020-10-28 05:46] LABS: ANION GAP 13 (6-22 (CALC)); BUN 26 mg/dL (8-23); BUN/CREATININE RATIO 28 (12-20 (CALC)); CARBON DIOXIDE 28 mmol/l (22-30); CHLORIDE 101 mmol/l (95-108); CREATININE 0.9 mg/dL (0.5-1.0); GFR 60 ML/MIN (>=60 (CALC)); GFR FOR AFR.AMER. > 60 ML/MIN (>=60 (CALC)); MAGNESIUM 1.8 mg/dL (1.6-2.3); POTASSIUM 3.5 mmol/l (3.5-5.1); SODIUM 138 mmol/l (137-146)
[2020-10-28] MEDS ORDERED: CO Q-10200 M1 PO (07:48)
[2020-10-28] MEDS ORDERED: CENTRUM SILVER1 TA1 PO (07:51)
[2020-10-28] MEDS ORDERED: PROBIOTIC 1-2501 CAP PO (07:54)
[2020-10-28] MEDS ORDERED: [UNRECOGNIZED DRUG - OTHER] PO (07:56)
[2020-10-28] MEDS ORDERED: LASIX 40 MG TAB40 MG PO (07:56)
[2020-10-28] MEDS ORDERED: STIOLTO RESPIMA1 AER PO (07:58)
--- NOTE | 2020-10-28 08:45 | NUR ---
PT IN SEMI HERR'S POSITION; A/O X3; FORGETFUL AT TIMES; PT DENIES PAIN OR DISCMFORT; TELE MONITOR IN PLACE; ENCOURAGE USE OF CALL LIGHT IF ANY ASSISTANCE IS NEEDED; CALL COLIN WITHIN REACH; WILL CONTINUE TO MONITOR.
[2020-10-28 09:39] VITALS: BP 149/84
--- NOTE | 2020-10-28 10:00 | NUR ---
PT TO CT VIA WC ACCOMPANIED BY STAFF;
--- NOTE | 2020-10-28 10:20 | NUR ---
PT RETURN FROM CT; STAND BY ASSIST TO BED; NO COMPLAINTS VOICED; CALL COLIN WITHIN REACH; WILL CONTINUE TO MONITOR.
[2020-10-28 10:56] LABS: INTERNATIONAL NORMALIZED RATIO 2.5 RATIO (0.7-1.3); PROTHROMBIN TIME 23.6 SECONDS (9.0-12.5)
[2020-10-28 11:10] VITALS: BP 157/84
[2020-10-28 15:42] VITALS: BP 133/85
--- NOTE | 2020-10-28 18:03 | NUR ---
PT IN HIGH HERR POSITION; NO COMPLAINTS OR CONCERN VOICED; STAND BY ASSIST TO BRP; CALL COLIN WITHIN REACH; WILL CONTINUE TO MONITOR.
[2020-10-28 19:50] VITALS: BP 115/69
--- NOTE | 2020-10-28 20:30 | NUR ---
PT MEDICATED AND ASSESSMENT COMPLETED AT THIS TIME. NO S/O DISTRESS NOTED. CALL LIGHT AT SIDE AND PT OFFERED SNACK/PROVIDED HER SNACK FROM HOME HELD IN REFRIDGERATOR. PT DENIES ANY OTHER NEEDS AT THIS TIME.
[2020-10-28 23:50] VITALS: BP 123/73
--- NOTE | 2020-10-29 00:28 | NUR ---
IV ANTIBIOTIC THERAPY COMPLETED AT THIS TIME. PT RETURNED TO SLEEP PROMPTLY.
[2020-10-29 04:00] VITALS: BP 131/79
--- NOTE | 2020-10-29 04:40 | NUR ---
PT IS AWAKE WATCHING TV. V/S ASSESSED AND LABS DRAWN. PT DENIES ANY NEEDS AT THIS TIME. PT HAD SOME BLEEDING AT LAB DRAW SITE. GAUZE REPLACED AND PRESSURE TO SITE APPLIED. PT INSTRUCTED TO CALL IF SHE NOTICES ANY FURTHER BLEEDING. VERBALIZED UNDERSTANDING. OFFERED JUICE OR OTHER COMFORT MEASURES/DENIED.
[2020-10-29 04:57] LABS: HEMATOCRIT 29.2 % (37.0-47.0); MEAN CORPUSCULAR HGB CONC 30.8 g/dL CAL (32.0-36.0); RED BLOOD COUNT 2.73 mill/uL (4.20-5.60); RED CELL DISTRI WIDTH 16.8 % (11.5-15.5)
[2020-10-29 05:20] LABS: ANION GAP 12 (6-22 (CALC)); BUN 26 mg/dL (8-23); BUN/CREATININE RATIO 27 (12-20 (CALC)); CARBON DIOXIDE 29 mmol/l (22-30); CHLORIDE 104 mmol/l (95-108); GFR 53 ML/MIN (>=60 (CALC)); GFR FOR AFR.AMER. > 60 ML/MIN (>=60 (CALC)); MAGNESIUM 1.6 mg/dL (1.6-2.3); POTASSIUM 3.3 mmol/l (3.5-5.1); SODIUM 141 mmol/l (137-146)
[2020-10-29 08:29] VITALS: BP 146/88
--- NOTE | 2020-10-29 08:47 | NUR ---
SHIFT CHANGE REPORT, PT AWAKE ALERT AND ORIENTED SITTING UP AT BEDSIDE, NO C/O DISCOMFORT, TELE MONITOR IN PLACE, ALL NEEDS MET, CALL COLIN IN REACH.
[2020-10-29 09:01] LABS: INTERNATIONAL NORMALIZED RATIO 2.5 RATIO (0.7-1.3); PROTHROMBIN TIME 23.6 SECONDS (9.0-12.5)
[2020-10-29 10:30] VITALS: BP 136/77
--- NOTE | 2020-10-29 13:04 | NUR ---
TELE MONITOR REMOVED AND PLACED IN NSG STATION.
--- NOTE | 2020-10-29 13:05 | NUR ---
Discharge instructions given. Patient verbalizes understanding of same. Discharged in good condition via Wheelchair to Home with family. All belongings sent with pt.
--- NOTE | 2020-10-31 12:28 | NUR ---
Pneumonia post discharge follow up call completed today, 10/31/20. Pt. doing much better per daughter. No fever, chills, or unusual SOB or fatigue. Pt already had the medication prescribed at discharge and is taking without issue. Daughter has attempted to make follow up appt with PCP but keeps getting voicemail. She left a message and will continue to try to reach the PCP. No needs or questions voiced by daughter. Appreciative of call.
== END 2020-10-29 13:05 | disposition home or self-care (01) | DRG 292 ==
LOC: MS2 10:59
PROVIDERS: Internal Medicine; Nurse Practitioner; ADMIT Internal Medicine; ATTEND Internal Medicine
DX: I11.0 Hypertensive heart disease with heart failure (principal); N39.0 Urinary tract infection, site not specified; I48.20 Chronic atrial fibrillation, unspecified; N17.9 Acute kidney failure, unspecified; I50.9 Heart failure, unspecified; D64.9 Anemia, unspecified; J44.9 Chronic obstructive pulmonary disease, unspecified; K21.9 Gastro-esophageal reflux disease without esophagitis; Z95.1 Presence of aortocoronary bypass graft; Z86.79 Personal history of other diseases of the circulatory system

== ENCOUNTER 2020-12-27 | Inpatient (IN) | payer MEDICARE, OTHER ==
[~2020-12-27] MED LIST changes: +CENTRUM SILVER1 TA1 PO; +CO Q-10200 M1 PO; +PROBIOTIC 1-2501 CAP PO; +STIOLTO RESPIMA1 AER PO; +[UNRECOGNIZED DRUG - OTHER] PO
[2020-12-27 12:58] VITALS: BP 108/36
[2020-12-27 13:00] LABS: HEMATOCRIT 25.8 % (37.0-47.0); HEMOGLOBIN 7.5 g/dl (12.0-16.0); IMMATURE GRANULOCYTES 0.5 % (0.0-5.0); MEAN CELL VOLUME 99.2 fL CALC (80.0-100.0); MEAN CORPUSCULAR HGB 28.8 pG CALC (26.0-32.0); MEAN CORPUSCULAR HGB CONC 29.1 g/dL CAL (32.0-36.0); NEUT# 6.52 thou/uL (2.00-7.15); RED BLOOD COUNT 2.6 mill/uL (4.20-5.60); RED CELL DISTRI WIDTH 15.8 % (11.5-15.5)
--- NOTE | 2020-12-27 13:00 | NUR ---
PT ARRIVED TO [facility] ROOM 273 AT 1240 VIA WHEELCHAIR ACCOMPANIED BY DAUGHTER. AMBULATED TO STANDING SCALE AND BED WITH STEADY GAIT; CHANGED INTO GOWN INDEPENDENTLY. ALERT AND ORIENTED X 3; DENIES PAIN; RESPIRATIONS EVEN AND UNLABORED ON ROOM AIR. PLEASANT AND COOPERATIVE; PLAN OF CARE DISCUSSED WITH PATIENT AND DAUGHTER; ENCOURAGED TO VERBALIZE CONCERNS AND BOTH STATE UNDERSTANDING. #20G IV STARTED TO LAC AND LABS OBTAINED; COVID SWAB OBTAINED; URINE SPECIMEN OBTAINED; PT AWARE OF ORDERED STOOL SAMPLE. LAB AT BEDSIDE TO COLLECTE TYPE AND SCREE. CONSENT SIGNED FOR BLOOD TRANSFUSION. ORIENTED TO ROOM AND CALL LIGHT SYSTEM. SAFETY MEASURES IN PLACE. CALL LIGHT WITHIN REACH.
[2020-12-27 13:32] LABS: ALBUMIN 4.4 g/dL (3.2-5.0); ALKALINE PHOSPHATASE 62 u/l (38-126); ANION GAP 14 (6-22 (CALC)); BILIRUBIN, TOTAL 0.8 mg/dL (0.0-1.4); BUN 21 mg/dL (8-23); BUN/CREATININE RATIO 30 (12-20 (CALC)); CARBON DIOXIDE 30 mmol/l (22-30); CHLORIDE 96 mmol/l (95-108); CREATININE 0.7 mg/dL (0.5-1.0); GFR > 60 ML/MIN (>=60 (CALC)); GFR FOR AFR.AMER. > 60 ML/MIN (>=60 (CALC)); POTASSIUM 3.4 mmol/l (3.5-5.1); SGOT/AST 22 u/l (9-36); SODIUM 137 mmol/l (137-146); TOTAL PROTEIN 7.1 g/dL (6.3-8.2)
[2020-12-27 13:35] LABS: URINE BILIRUBIN - DIPSTICK NEGATIVE (NEGATIVE); URINE BLOOD DIPSTICK NEGATIVE (NEGATIVE); URINE COLOR YELLOW; URINE GLUCOSE - DIPSTICK NEGATIVE (NEGATIVE); URINE KETONE NEGATIVE (NEGATIVE); URINE LEUK ESTERASE TRACE (NEGATIVE); URINE PROTEIN - DIPSTICK TRACE mg/dL (NEG-TRACE); URINE SPECIFIC GRAVITY 1.015; URINE UROBILINOGEN - DIPSTICK 0.2 E.U./dL (0.2)
[2020-12-27 13:36] LABS: URINE NITRITE - DIPSTICK NEGATIVE (Negative)
[2020-12-27] MEDS ORDERED: IPRATROPIU0.5 MG/3 M IN (13:39)
[2020-12-27] MEDS ORDERED: NIFEDIPINE ER30 M1 PO (13:39)
[2020-12-27] MEDS ORDERED: [UNRECOGNIZED DRUG - OTHER] TOP (13:40)
--- NOTE | 2020-12-27 13:53 | NUR ---
RADIOLOGY AT BEDSIDE FOR PORTABLE CHEST XRAY. TELEMETRY APPLIED.
[2020-12-27 15:06] VITALS: BP 112/43
--- NOTE | 2020-12-27 15:22 | NUR ---
PT RESTING COMFORTABLY IN BED; SCHEDULED MEDICATIONS GIVEN INCLUDING VENEFOR. MAGNESIUM CURRENTLY INFUSING WITHOUT DIFFICULTY; IV SITE APPEARS HEALTHY. SNACK PROVIDED. CALL LIGHT WITHIN REACH.
[2020-12-27 18:53] VITALS: BP 118/66
[2020-12-27 18:55] LABS: HEMATOCRIT 23.3 % (37.0-47.0)
[2020-12-27 19:02] LABS: HEMOGLOBIN 6.7 g/dl (12.0-16.0)
--- NOTE | 2020-12-27 23:27 | NUR ---
PT IN BED WITH EYES CLOSED. NO S/S OF DISTRESS OR DISCOMFORT. RESPIRATIONS ARE EVEN AND NON LABORED. MEDS GIVEN AND TOLERATED WELL. IV FLUSHED WITH NO COMPLICATIONS NOTED. DRESSING INTACT TO IV SITE. CALL LIGHT IS WITHIN REACH AND WILL CONTINUE TO OBSERVE.
[2020-12-28] VITALS (12 sets, daily range): BP systolic 111–140; BP diastolic 52–74
--- NOTE | 2020-12-28 00:18 | NUR ---
BLOOD VERIFIED AND BLOOD TRANSFUSION CURRENTLY RUNNING AT 75ML/HR. NO COMPLICATIONS NOTED AT THIS TIME. AFEBRILE.
[2020-12-28 00:51] LABS: HEMOGLOBIN 6.4 g/dl (12.0-16.0)
--- NOTE | 2020-12-28 02:18 | NUR ---
PT IN BED WITH EYES CLOSED. WITH NO S/SOF DISTRESS/DISCOMFORT. CONTINUES TO HAVE BLOOD TRANSFUSION RUNNING AND TOLERATED WELL. CONTINENT OF B/B AND TRANSFERS SELF TO TOILET. VITALS ARE WITHIN REACH AND CALL LIGTH IS WITHIN REACH. WILL CONTINUE TO OBSERVE
--- NOTE | 2020-12-28 02:31 | NUR ---
BLOOD TRANSFUSION COMPLETED AND PTTOLERATED WELL.IN BED WITH EYES CLOSED AND NO DISTRESS NOTED.VITALS ARE WITHIN NORMAL LIMITS AND AFEBRILE. WILL CONTINUE TO OBSERVE.
--- NOTE | 2020-12-28 06:15 | NUR ---
PTIN BED WITH EYES CLOSED. NO S/SOF DISTRESS/DISCOMFORT. DENIES PAIN.RESPIRATION EVEN AND NON LABORED. CALL LIGTH WITHIN REACH. WILL CONTINUE TO OBSERVE.
[2020-12-28 06:19] LABS: HEMATOCRIT 26.1 % (37.0-47.0); HEMOGLOBIN 7.7 g/dl (12.0-16.0)
[2020-12-28 06:27] LABS: HEMATOCRIT 26.1 % (37.0-47.0); HEMOGLOBIN 7.7 g/dl (12.0-16.0); MEAN CELL VOLUME 97.8 fL CALC (80.0-100.0); MEAN CORPUSCULAR HGB 28.8 pG CALC (26.0-32.0); MEAN CORPUSCULAR HGB CONC 29.5 g/dL CAL (32.0-36.0); RED BLOOD COUNT 2.67 mill/uL (4.20-5.60); RED CELL DISTRI WIDTH 16.2 % (11.5-15.5)
[2020-12-28 06:57] LABS: ALKALINE PHOSPHATASE 59 u/l (38-126); BUN 21 mg/dL (8-23); BUN/CREATININE RATIO 29 (12-20 (CALC)); CARBON DIOXIDE 31 mmol/l (22-30); CHLORIDE 101 mmol/l (95-108); CREATININE 0.7 mg/dL (0.5-1.0); GFR > 60 ML/MIN (>=60 (CALC)); GFR FOR AFR.AMER. > 60 ML/MIN (>=60 (CALC)); SGOT/AST 23 u/l (9-36); SODIUM 136 mmol/l (137-146); TOTAL PROTEIN 5.8 g/dL (6.3-8.2)
[2020-12-28 07:05] LABS: ALBUMIN 3.5 g/dL (3.2-5.0); ANION GAP 8 (6-22 (CALC)); BILIRUBIN, TOTAL 1.4 mg/dL (0.0-1.4); POTASSIUM 4.2 mmol/l (3.5-5.1)
--- NOTE | 2020-12-28 07:41 | NUR ---
PT LAYING IN BED. A&O X3. NO DISTRESS NOTED. PT REPORTS TO BE FEELING "NAUSEOUS" THIS MORNING, DENIES ANY VOMITING EPISODES. DIMINSHED BREATH SOUNDS HEARD UPON AUSCULTATION. IRREGULAR HR, AFIB HEARD UPON ASSESSMENT. ACTIVE BOWEL SOUNDS X4 QUAD. SENIOR FINANCIAL CONSULTANT IN PACE. PT DENIES ANT PAIN AT THIS TME.#[address], HEALTHY AND PATENT. ASSESSMENT COMPLETED. DISCUSSED POC. CALL LIGHT WITHIN REACH.
--- NOTE | 2020-12-28 09:28 | NUR ---
Ric LUIS APRN AT BEDSIDE
[2020-12-28 09:54] LABS: INTERNATIONAL NORMALIZED RATIO 1.9 RATIO (0.7-1.3); PROTHROMBIN TIME 19.1 SECONDS (9.0-12.5)
--- NOTE | 2020-12-28 10:33 | NUR ---
CHART REVIEWED PT EVALUATION IS NOT INDICATED AT THIS TIME.
--- NOTE | 2020-12-28 11:48 | NUR ---
PT SITTING IN BED EATING LUNCH. DR FINLEY AT BEDSIDE DISCUSSING POC. CALL LIGHT WITHIN REACH.
--- NOTE | 2020-12-28 15:53 | NUR ---
BLOOD TRANSFUSION INITIATED. BLOOD VERIFIED WITH PIPO MEJIA.
--- NOTE | 2020-12-28 16:54 | NUR ---
BLOOD TRANSFUSION IN PROGRESS. NO ADVERSE REACTIONS NOTED OR REPORTED.
--- NOTE | 2020-12-28 17:30 | NUR ---
PT SITTING IN BED EATING DINNER. NO DISTRESS NOTED. BLOOD INUSING 125ML/HR. PT TOLERATING WELL. CALL LIGHT WITHIN REACH.
--- NOTE | 2020-12-28 19:10 | NUR ---
BLOOD TRANSFUSION COMPLETED. PT TOLERATED WELL. PT TOLERATED WELL.
--- NOTE | 2020-12-28 20:20 | NUR ---
PT MEDICATED ORDERS PROVIDE, NO S/O DISTRESS NOTED. PT REPORTS FEELING OKAY, NO SOB AT THIS TIME. DENIES N/V/D. ASSESSMENT COMPLETED AT THIS TIME.
[2020-12-29 00:17] VITALS: BP 121/64
[2020-12-29 04:00] VITALS: BP 120/67
--- NOTE | 2020-12-29 04:12 | NUR ---
V/S ASSESSED. NO S/O DISTRESS NOTED. ASSISTED PT TO RESTROOM AND BACK TO BED.
[2020-12-29 06:06] LABS: HEMOGLOBIN 8.7 g/dl (12.0-16.0); MEAN CELL VOLUME 96.7 fL CALC (80.0-100.0); RED CELL DISTRI WIDTH 16.3 % (11.5-15.5)
[2020-12-29 06:21] LABS: PROTHROMBIN TIME 20.3 SECONDS (9.0-12.5)
[2020-12-29 06:26] LABS: ANION GAP 11 (6-22 (CALC)); BUN 19 mg/dL (8-23); BUN/CREATININE RATIO 24 (12-20 (CALC)); CARBON DIOXIDE 30 mmol/l (22-30); CHLORIDE 98 mmol/l (95-108); CREATININE 0.8 mg/dL (0.5-1.0); GFR > 60 ML/MIN (>=60 (CALC)); GFR FOR AFR.AMER. > 60 ML/MIN (>=60 (CALC)); POTASSIUM 3.7 mmol/l (3.5-5.1); SODIUM 135 mmol/l (137-146)
--- NOTE | 2020-12-29 07:30 | NUR ---
ASSESSMENT IS COMPLETED: IV SITE IS FREE FROM REDNESS OR EDEMA. HR IS REG,PULSES ARE STRONG X4, ABD IS SOFT WITH ACTIVE BS. BREATH SOUNDS ARE CLEAR BILATERALLY. TELE MONTIOR IN PLACE. CONTINUE TO OBSERVE AND MONITOR.
[2020-12-29 07:35] VITALS: BP 125/67
[2020-12-29 10:30] VITALS: BP 128/63
--- NOTE | 2020-12-29 12:00 | NUR ---
PT IS RELAXING IN BED WITH NO DISTRESS NOTED. IV SITE IS FREE FROM REDNESS OR EDEMA.
[2020-12-29 15:13] VITALS: BP 120/67
--- NOTE | 2020-12-29 16:00 | NUR ---
PT IS RELAXING IN BED WITH NO DISTRESS NOTED. IV SITE IS FREE FROM REDNESS OR EDEMA.
[2020-12-29 19:00] VITALS: BP 124/67
--- NOTE | 2020-12-29 20:03 | NUR ---
ED CALLED TO REPORT PT IS READING ZERO ON SLOT ATTENDANT. UPON ENTERING ROOM, PT WAS FOUND SITTING ON THE SIDE OF THE BED, LOC AND WATCHING TV, WORKING PUZZLE BOOK. SHE LAUGHED AND STATED, "I AM BREATHING" BLOWING LARGE BREATHS TO DEMONSTRATE. LEADS CHECKED TO BE INTACT AND ALL LIGHTS ON. PT DENIES ANY NEEDS. SNACK AND DRINK OFFERED, DENIES.
--- NOTE | 2020-12-29 20:23 | NUR ---
PT IS SITTING ON THE SIDE OF THE BED WORKING ON A CROSSWORD PUZZLE AND WATCHING TV. SHE REPORTS FEELING WELL, "I CAN'T COMPLAIN" SHE STATED. NO S/O DISTRESS AND PT IS TALKATIVE ABOUT TV SHOWS SHE LIKES AND PUZZLES SHE WORKS ON. PT ASSESSED AT THIS TIME. SHE ASKED FOR HER ATIVAN FOR SLEEP AIDE, WILL PROVIDE ORDERS ALLOW.
[2020-12-30 00:02] VITALS: BP 147/73
--- NOTE | 2020-12-30 02:25 | NUR ---
Pt is sleeping, no s/o distress nobserved. call light is at side w/in reach.
[2020-12-30 04:05] VITALS: BP 110/57
--- NOTE | 2020-12-30 05:52 | NUR ---
LAB IN WITH PT. NO S/O DISTRESS NOTED. PT DENIES ANY NEEDS.
[2020-12-30 07:03] LABS: HEMATOCRIT 29.1 % (37.0-47.0); HEMOGLOBIN 8.8 g/dl (12.0-16.0); MEAN CELL VOLUME 97.3 fL CALC (80.0-100.0); MEAN CORPUSCULAR HGB 29.4 pG CALC (26.0-32.0); MEAN CORPUSCULAR HGB CONC 30.2 g/dL CAL (32.0-36.0); RED BLOOD COUNT 2.99 mill/uL (4.20-5.60); RED CELL DISTRI WIDTH 16.4 % (11.5-15.5)
[2020-12-30 07:25] LABS: ANION GAP 9 (6-22 (CALC)); BUN 17 mg/dL (8-23); BUN/CREATININE RATIO 24 (12-20 (CALC)); CARBON DIOXIDE 29 mmol/l (22-30); CHLORIDE 100 mmol/l (95-108); CREATININE 0.7 mg/dL (0.5-1.0); GFR > 60 ML/MIN (>=60 (CALC)); GFR FOR AFR.AMER. > 60 ML/MIN (>=60 (CALC)); POTASSIUM 3.8 mmol/l (3.5-5.1); SODIUM 135 mmol/l (137-146)
[2020-12-30 07:30] VITALS: BP 138/67
[2020-12-30 07:34] LABS: PROTHROMBIN TIME 20.6 SECONDS (9.0-12.5)
--- NOTE | 2020-12-30 07:35 | NUR ---
ASSESSMENT IS COMPLTED: IV SITE IS FREE FROM REDNESS OR EDEMA. HR IS REG,PULSES ARE STRONG X4, ABD IS SOFT WITH ACTIVE BS. BREATH SOUNDS ARE CLEAR BILATERALLY, TELE MONITOR IN PLACE. CONITNUE TO [place] AND MONITOR.
[2020-12-30 10:23] VITALS: BP 125/60
--- NOTE | 2020-12-30 12:38 | NUR ---
ALL DISCHARGE INSTRUCTIONS GIVEN TO PT. AND IV SITE AND TELE MONITOR TAKEN OFF. FAMILY IN THE ER TRANSPORTING PT HOME.
--- NOTE | 2020-12-30 12:40 | NUR ---
Discharge instructions given. Patient verbalizes understanding of same. Discharged in stable condition via Wheelchair to Home with family. All belongings sent with pt.
== END 2020-12-30 12:38 | disposition home or self-care (01) | DRG 811 ==
PROVIDERS: Nurse Practitioner; ADMIT Internal Medicine
PROC: 30233N1 Transfusion of Nonautologous Red Blood Cells into Peripheral Vein, Percutaneous Approach (ICD-10-PCS; principal; 2020-12-28)
PROC: 30233N1 Transfusion of Nonautologous Red Blood Cells into Peripheral Vein, Percutaneous Approach (ICD-10-PCS; 2020-12-28)
DX: D62 Acute posthemorrhagic anemia (principal); K55.21 Angiodysplasia of colon with hemorrhage; I48.20 Chronic atrial fibrillation, unspecified; K92.2 Gastrointestinal hemorrhage, unspecified; T45.515A Adverse effect of anticoagulants, initial encounter; I10 Essential (primary) hypertension; J44.9 Chronic obstructive pulmonary disease, unspecified; K59.00 Constipation, unspecified; K44.9 Diaphragmatic hernia without obstruction or gangrene; K21.9 Gastro-esophageal reflux disease without esophagitis; E87.6 Hypokalemia; Z95.1 Presence of aortocoronary bypass graft; Z79.01 Long term (current) use of anticoagulants; Z95.818 Presence of other cardiac implants and grafts; Z20.822 Contact with and (suspected) exposure to COVID-19
CPT/HCPCS: G0328; J1756; J3420; J3475; P9016; S0164

== ENCOUNTER 2022-01-05 14:13 | Emergency (ER) | payer OTHER, MEDICARE ==
[~2022-01-05] VITALS: Ht 154.9 cm; Wt 53.0 kg
[2022-01-05] VITALS (15 sets, daily range): BP systolic 145–193; BP diastolic 65–128
[~2022-01-05 14:13] MED LIST changes: +IPRATROPIU0.5 MG/3 M IN; +NIFEDIPINE ER30 M1 PO; +[UNRECOGNIZED DRUG - OTHER] TOP
[2022-01-05 15:02] LABS: HEMATOCRIT 34.3 % (37.0-47.0); HEMOGLOBIN 10.7 g/dl (12.0-16.0); IMMATURE GRANULOCYTES 1.3 % (0.0-5.0); MEAN CELL VOLUME 107.5 fL CALC (80.0-100.0); MEAN CORPUSCULAR HGB 33.5 pG CALC (26.0-32.0); MEAN CORPUSCULAR HGB CONC 31.2 g/dL CAL (32.0-36.0); NEUT# 4.04 thou/uL (2.00-7.15); RED BLOOD COUNT 3.19 mill/uL (4.20-5.60); RED CELL DISTRI WIDTH 13.7 % (11.5-15.5)
[2022-01-05 15:03] LABS: URINE BILIRUBIN - DIPSTICK NEGATIVE (NEGATIVE); URINE BLOOD DIPSTICK NEGATIVE (NEGATIVE); URINE COLOR YELLOW; URINE GLUCOSE - DIPSTICK NEGATIVE (NEGATIVE); URINE KETONE NEGATIVE (NEGATIVE); URINE LEUK ESTERASE NEGATIVE (NEGATIVE); URINE PH 6.5 (4.5-8.0); URINE PROTEIN - DIPSTICK NEGATIVE (NEG-TRACE); URINE UROBILINOGEN - DIPSTICK 0.2 E.U./dL (0.2)
[2022-01-05 15:10] LABS: URINE NITRITE - DIPSTICK NEGATIVE (Negative)
[2022-01-05 15:31] LABS: ALBUMIN 4.7 g/dL (3.2-5.0); ALKALINE PHOSPHATASE 67 u/l (38-126); ANION GAP 14 (6-22 (CALC)); BILIRUBIN, TOTAL 0.8 mg/dL (0.0-1.4); BUN 20 mg/dL (8-23); BUN/CREATININE RATIO 25 (12-20 (CALC)); CARBON DIOXIDE 28 mmol/l (22-30); CHLORIDE 102 mmol/l (95-108); CREATININE 0.8 mg/dL (0.5-1.0); GFR > 60 ML/MIN (>=60 (CALC)); GFR FOR AFR.AMER. > 60 ML/MIN (>=60 (CALC)); LIPASE 243 u/l (23-300); POTASSIUM 4.5 mmol/l (3.5-5.1); SGOT/AST 33 u/l (9-36); SODIUM 140 mmol/l (137-146); TOTAL PROTEIN 7.7 g/dL (6.3-8.2)
[2022-01-05 15:42] LABS: MYOGLOBIN 215 ng/mL (0 - 62)
[2022-01-05 19:40] LABS: PROTHROMBIN TIME 10.7 SECONDS (9.0-12.5)
== END 2022-01-05 20:15 | disposition short-term general hospital (02) | DRG 552 ==
LOC: ED 14:13
PROVIDERS: Family Medicine; Nurse Practitioner
DX: S12.600A Unspecified displaced fracture of seventh cervical vertebra, initial encounter for closed fracture (principal); S41.111A Laceration without foreign body of right upper arm, initial encounter; I11.0 Hypertensive heart disease with heart failure; I50.9 Heart failure, unspecified; I48.91 Unspecified atrial fibrillation; J44.9 Chronic obstructive pulmonary disease, unspecified; K21.9 Gastro-esophageal reflux disease without esophagitis; V49.50XA Passenger injured in collision with unspecified motor vehicles in traffic accident, initial encounter; Z86.73 Personal history of transient ischemic attack (TIA), and cerebral infarction without residual deficits
CPT/HCPCS: Q9967

== ENCOUNTER 2022-06-25 18:21 | Inpatient (IN) | payer MEDICARE, OTHER ==
[~2022-06-25] VITALS: Ht 157.5 cm; Wt 58.0 kg
[2022-06-25] VITALS (12 sets, daily range): BP systolic 93–149; BP diastolic 64–93
--- NOTE | 2022-06-25 18:21 | NUR ---
PATIENT TO ED VIA EMS.
--- NOTE | 2022-06-25 19:00 | NUR ---
TRANSITION OF CARE BEDSIDE REPORT TO REINALDO MEJIA
--- NOTE | 2022-06-25 19:00 | NUR ---
ASSUMED CARE OF PT. PT. RECEIVING NEB TX AT PRESENT. SLIGHTLY TACHYPNEIC, O2 SAT 98%. ON O2 AT 4L NC. PT. A&OX3. FAMILY AT BEDSIDE
[2022-06-25 19:13] LABS: HEMATOCRIT 33.1 % (37.0-47.0); HEMOGLOBIN 9.9 g/dl (12.0-16.0); IMMATURE GRANULOCYTES 2.2 % (0.0-5.0); MEAN CELL VOLUME 115.3 fL CALC (80.0-100.0); MEAN CORPUSCULAR HGB 34.5 pG CALC (26.0-32.0); MEAN CORPUSCULAR HGB CONC 29.9 g/dL CAL (32.0-36.0); NEUT# 5.85 thou/uL (2.00-7.15); RED BLOOD COUNT 2.87 mill/uL (4.20-5.60); RED CELL DISTRI WIDTH 15.4 % (11.5-15.5)
--- NOTE | 2022-06-25 19:20 | NUR ---
NEB TX COMPLETED. RESP EFFORT SLIGHTLY TACHYPNEIC 02 SAT 96% ON 2L NC
[2022-06-25 19:25] LABS: ALBUMIN 4.5 g/dL (3.2-5.0); CREATININE 1.1 mg/dL (0.5-1.0); POTASSIUM 4.8 mmol/l (3.5-5.1); TOTAL PROTEIN 7.4 g/dL (6.3-8.2)
[2022-06-25 19:29] LABS: BILIRUBIN, TOTAL 0.8 mg/dL (0.0-1.4)
--- NOTE | 2022-06-25 20:10 | NUR ---
FAMILY AT BEDSIDE. PT.RESTING QUUIETLY NO DISTRESS NOTED
[2022-06-25] MEDS ORDERED: METOPROLOL SUCC50 MG PO (20:39)
[2022-06-25] MEDS ORDERED: NORVASC2.5 M1 PO (20:40)
[2022-06-25] MEDS ORDERED: ISOSORB MONO20 MG PO (20:40)
[2022-06-25] MEDS ORDERED: IRON28 M1 PO (20:43)
[2022-06-25] MEDS ORDERED: VITAMIN C + PO (20:48)
[2022-06-25] MEDS ORDERED: ASPIRIN ENTERIC81 MG PO (20:49)
[2022-06-25] MEDS ORDERED: MULTI VIT PO (20:50)
[2022-06-25] MEDS ORDERED: CALCI17 PO (20:50)
[2022-06-25] MEDS ORDERED: CO Q 1010 MG PO (20:51)
[2022-06-25] MEDS ORDERED: VITAMIN B PO (20:52)
[2022-06-25] MEDS ORDERED: REMERON7.5 MG PO (20:53)
[2022-06-25] MEDS ORDERED: MELATONIN10 M1 PO (20:54)
[2022-06-25] MEDS ORDERED: ASPRUZYO SPRIN500 MG PO (20:55)
--- NOTE | 2022-06-25 21:10 | NUR ---
CARDIZEM VIA PUMP AT 10MG/HR ORDERED. PT. 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
--- NOTE | 2022-06-25 22:30 | NUR ---
PT. TRANSPORTED IA STRETCHER TO ICU 5 REPORT AT [facility].
--- NOTE | 2022-06-25 23:43 | NUR ---
called md for orders for wheezing and sleep. will wait for orders
[2022-06-26] VITALS (34 sets, daily range): BP systolic 113–154; BP diastolic 53–117
--- NOTE | 2022-06-26 00:16 | NUR ---
pt is recieving neb treatment. will give lasix and meletonin as requested by patient. vitals stable. cardizem at 10mg/hr. hr within normal range.will continue to monitor.
--- NOTE | 2022-06-26 04:35 | NUR ---
pt resting in bed. no wheezing. comfortable. vitls stable. call ryan within reach
[2022-06-26 05:45] LABS: HEMATOCRIT 31.9 % (37.0-47.0); HEMOGLOBIN 9.6 g/dl (12.0-16.0); MEAN CELL VOLUME 113.1 fL CALC (80.0-100.0); MEAN CORPUSCULAR HGB CONC 30.1 g/dL CAL (32.0-36.0); RED BLOOD COUNT 2.82 mill/uL (4.20-5.60); RED CELL DISTRI WIDTH 15.4 % (11.5-15.5)
[2022-06-26 06:18] LABS: ANION GAP 16 (6-22 (CALC)); BUN 21 mg/dL (8-23); BUN/CREATININE RATIO 24 (12-20 (CALC)); CARBON DIOXIDE 25 mmol/l (22-30); CHLORIDE 104 mmol/l (95-108); CREATININE 0.9 mg/dL (0.5-1.0); GFR FOR AFR.AMER. > 60 ML/MIN (>=60 (CALC)); GFR OTHER RACES 59 ML/MIN (>=60 (CALC)); MAGNESIUM 1.8 mg/dL (1.6-2.3); POTASSIUM 4.3 mmol/l (3.5-5.1); SODIUM 141 mmol/l (137-146)
--- NOTE | 2022-06-26 06:38 | NUR ---
vibramycin not in pixis or shelf in cabinet stocked
--- NOTE | 2022-06-26 07:00 | NUR ---
Recieved patient. Patient resting in bed. Vitals WNl. No complaints of pain at this time. Assessment completed. Patient on 2L o2, breathing unlabored.
--- NOTE | 2022-06-26 07:18 | NUR ---
spoke to md and reported keep cardizem off bc there is no continous order. rate 60s. vitals stable.
--- NOTE | 2022-06-26 11:58 | NUR ---
Patient resting in bed. Vitals WNL. Patient has no complaints of pain at this time. Patient's daughter was bedside most of the AM, and Dr. Desouza provided a bedside update to patient and daughter.
--- NOTE | 2022-06-26 15:47 | NUR ---
PT ARRIVED TO [facility] ROOM 268 VIA WHEELCHAIR ACCOMPAINED BY ICU STAFF. PT A/OX3. SOB ON EXCERTION. 2L NC. LUNG SOUNDS CLEAR. HEART RHYTHM IRREGULAR, AFIB PER ER MONITORING. #20G LAC AND #20G LH PATENT. SKIN INTACT. PT DENIES OF ANY PAINS OR DISCOMFORTS. PT ORIENTED TO ROOM AND CALL SYSTEM. ALL SAFTEY PRECAUTIONS IN PLACE
--- NOTE | 2022-06-26 19:50 | NUR ---
PT RESTING IN BED WATCHING TV, NO SIGNS OF DISTRESS NOTED, RESP EVEN AND UNLABORED. PT ALERT AND ORIENTED X3, FORGETFUL AT TIMES, PT INQUIRING ABOUT IV, INFORMED PT THAT IV SITE MUST REMAIN FOR IV ANTIBIOTICS, VERBLIZED UNDERSTANDING. 02 2L NC, IV TO SL, FLUSHED AND INITIATED IV ROCEPHING. DISCUSSED POC, VERBALIZED UNDERSTADING, PT DECLINED TEDS, BED ALARM FOR SAFETY, CALL LIGHT IN REACH,CONTINUE TO MONITOR.
--- NOTE | 2022-06-27 | NUR ---
PT RESTING IN BED WITH EYES CLOSED, NO SIGNS OF DISTRESS NOTED, RESP EVEN AND UNLABORED. CALL LIGHT IN REACH,CONTINUE TO MONITOR.
--- NOTE | 2022-06-27 04:03 | NUR ---
PT RESTING IN BED WITH EYES CLOSED, NO SIGNS OF DISTRESS NOTED, RESP EVEN AND UNLABORED. BED ALARM FOR SAFETY, CALL LIGHT IN REACH,CONTINUE TO MONITOR.
[2022-06-27 04:14] VITALS: BP 108/61
[2022-06-27 05:30] LABS: HEMATOCRIT 31.5 % (37.0-47.0); HEMOGLOBIN 9.5 g/dl (12.0-16.0); MEAN CELL VOLUME 115.4 fL CALC (80.0-100.0); MEAN CORPUSCULAR HGB 34.8 pG CALC (26.0-32.0); MEAN CORPUSCULAR HGB CONC 30.2 g/dL CAL (32.0-36.0); RED BLOOD COUNT 2.73 mill/uL (4.20-5.60)
[2022-06-27 05:57] LABS: CREATININE 1.1 mg/dL (0.5-1.0); MAGNESIUM 2.1 mg/dL (1.6-2.3); POTASSIUM 4.7 mmol/l (3.5-5.1)
--- NOTE | 2022-06-27 06:27 | NUR ---
PT RESTING IN BED, ATTEMPTED TO START ANTIBITOTIC, PT C/O BURNING TO IV SITE. NO SIGNS OF INFILTRATION NOTED, BUT WHEN FLUSHED WITH NS PT STATES IT ARAUJO. DISCUSSED PLACING A NEW IV SITE. PT DECLINED STATES SHE HAS HAD ENOUGH ANTIBIOTICS AND DOES NOT WANT TO BE STUCK AGAIN. WILL NOTIFY , CALL LIGHT IN REACH,CONTINUE TO MONITOR.
[2022-06-27 07:00] VITALS: BP 131/76
--- NOTE | 2022-06-27 07:19 | NUR ---
RECIEVED BEDSIDE REPORT. PT A/OX3. RESPIRATIONS EVEN AND UNLABORED ON 2L NC. LUNG SOUNDS CLEAR. HEART RHYTHM NORMAL. BOWEL SOUNDS ACTIVE. PULSES STRONG.TRACE EDEMA NOTED. SKIN INTACT.#22G LFA PATENT. PT DENIES OF ANY PAINS OR DISCOMFORTS AT THIS TIME. ALL SAFTEY PRECAUTIONS ARE IN PLACE WITH CALL LIGHT IN REACH. PT INSTRUCTED TO CALL FOR ASSISTANCE
--- NOTE | 2022-06-27 11:33 | NUR ---
CODE BROWN, VERTICAL MOVE PER POLICY. PATIENT MOVED AT 1105 INTO [facility] 8
--- NOTE | 2022-06-27 13:00 | NUR ---
PT TRANSFERRED TO ROOM 8 IN [facility] DEPT, REPORT RECEIVED FROM LESA. PT ALERT AND ORIENTED RESTING IN BED, NO C/O DISCOMFORT AT THIS TIME, BED IN LOWEST POSITION AND CALL COLIN IN REACH.
[2022-06-27 15:40] VITALS: BP 137/56
--- NOTE | 2022-06-27 16:00 | NUR ---
PT SLEEPING AT THIS TIME, BREATHING EVEN AND NON-LABORED, NO SIGN DISCOMFORT, CALL COLIN IN REACH AND BED LOCKED IN LOWEST POSITION.
[2022-06-27 19:00] VITALS: BP 136/47
[2022-06-28] VITALS (8 sets, daily range): BP systolic 127–144; BP diastolic 42–78
[2022-06-28 06:28] LABS: HEMATOCRIT 31.6 % (37.0-47.0); HEMOGLOBIN 9.6 g/dl (12.0-16.0); MEAN CELL VOLUME 116.6 fL CALC (80.0-100.0); MEAN CORPUSCULAR HGB 35.4 pG CALC (26.0-32.0); MEAN CORPUSCULAR HGB CONC 30.4 g/dL CAL (32.0-36.0); RED BLOOD COUNT 2.71 mill/uL (4.20-5.60); RED CELL DISTRI WIDTH 15.9 % (11.5-15.5)
[2022-06-28 06:45] LABS: ANION GAP 11 (6-22 (CALC)); BUN 40 mg/dL (8-23); BUN/CREATININE RATIO 52 (12-20 (CALC)); CARBON DIOXIDE 29 mmol/l (22-30); CHLORIDE 102 mmol/l (95-108); CREATININE 0.8 mg/dL (0.5-1.0); GFR FOR AFR.AMER. > 60 ML/MIN (>=60 (CALC)); GFR OTHER RACES > 60 ML/MIN (>=60 (CALC)); POTASSIUM 4.7 mmol/l (3.5-5.1); SODIUM 137 mmol/l (137-146)
--- NOTE | 2022-06-28 08:06 | NUR ---
PT RESTING IN SEMI FOWLERS POSITION. RESPIRATIONS EVEN AND UNLABORED ON ROOM AIR., 96%. LUNG SOUNDS CLEAR. HEART RHYTHM NORMAL. BOWEL SOUNDS ACTIVE. #22F LFA PATENT. SKIN INTACT. 1+ EDEMA NOTED TO BLE. PEDAL PULSES STRONG. PT DENIES OF ANY NEEDS. ALL SAFTEY PRECAUTIONS ARE IN PLACE WITH CALL LIGHT IN REACH
[2022-06-28 09:23] LABS: HEMATOCRIT 31.5 % (37.0-47.0); HEMOGLOBIN 9.5 g/dl (12.0-16.0); IMMATURE GRANULOCYTES 0.5 % (0.0-5.0); MEAN CELL VOLUME 116.7 fL CALC (80.0-100.0); MEAN CORPUSCULAR HGB 35.2 pG CALC (26.0-32.0); MEAN CORPUSCULAR HGB CONC 30.2 g/dL CAL (32.0-36.0); NEUT# 12.73 thou/uL (2.00-7.15); RED BLOOD COUNT 2.7 mill/uL (4.20-5.60); RED CELL DISTRI WIDTH 15.8 % (11.5-15.5)
--- NOTE | 2022-06-28 13:12 | NUR ---
PT SITTING UP IN RECYLINER. RESPIRATIONS EVEN AND UNLABORED ON ROOM AIR. #22G LFA PATENT. TELE MONITORING IN PLACE. FAMILY UPDATED ON PT STATUS. PT DENIES OF ANY NEEDS. ALL SAFETY PRECAUTIONS ARE IN PLACE WITH CALL LIGHT IN REACH
--- NOTE | 2022-06-28 16:10 | NUR ---
PT RESTING IN SEMI FOWLERS POSITION. RESPIRATIONS EVEN AND UNLABORED ON ROOM AIR. TELE MONITORING IN PLACE. #22G LFA PATENT. PT DNEIES OF ANY NEEDS. ALL SAFTEY PRECAUTIONS ARE IN PLACE WITH CALL LIGHT IN REACH
--- NOTE | 2022-06-28 18:24 | NUR ---
#20G LFA INFILTARTED. PT EDUCATED ON NEED FOR NEW IV. PT REFUSING. DR AMATO INFORMED. ATMOSPHERIC PHYSICS PROFESSOR INFORMED THAT ABX WILL BE CHANGED TO PO AND NO IV NEEDED.
--- NOTE | 2022-06-28 19:00 | NUR ---
PATIENT SITTING ON THE SIDE OF THE BED-AWAKE ALERT AND ORIENTEDX3. PATIENT WITH NO COMPLAINTS EXCEPT THAT SHE DOES NOT WANT ANY MORE IV'S PLACED. NEW ORDERS FOR ORAL ANTIBIOTICS RECEIEVED. TELE MONITOR IN PLACE AND READING A-FIB 70'S. ANXIOUS FOR DISCHARGE TOMORROW. LUNGS ARE CLEAR. ABD IS SOFT. BS+-STATES THAT HER LAST BM WAS YESTERDAY. UP TO THE BSC TO VOID WITH MIN ASSIST. SAFETY PRECAUTIONS REINFORCED. CALL LIGHT IN REACH. WILL CONT TO MONITOR.
--- NOTE | 2022-06-28 22:05 | NUR ---
PATIENT RESTING IN BED-PATIENT HAD HS SNACK AND REQUESTING SLEEPING PILL. MEDICATGED WITH MELOTONIN 6MG PO, SAFETY PRECAUTIONS REINFORCED. CALL LIGHT IN REACH. WILL CONT TO MONITOR.
[2022-06-29 00:30] VITALS: BP 145/78
--- NOTE | 2022-06-29 01:00 | NUR ---
PATIENT RESTING IN BED-EYES ARE CLOSED AND RESPS ARE EVEN AND UNLABORED. TELE MONITOR IN PLACE WITH LAST READING A-FIB 73. NO IV SITE AT THIS TIME-MD IS AWARE. CALL LIGHT IN REACH. WILL CONT TO MONITOR.
[2022-06-29 04:05] LABS: HEMATOCRIT 29.5 % (37.0-47.0); HEMOGLOBIN 9.1 g/dl (12.0-16.0); MEAN CELL VOLUME 113.9 fL CALC (80.0-100.0); MEAN CORPUSCULAR HGB 35.1 pG CALC (26.0-32.0); MEAN CORPUSCULAR HGB CONC 30.8 g/dL CAL (32.0-36.0); RED BLOOD COUNT 2.59 mill/uL (4.20-5.60); RED CELL DISTRI WIDTH 15.3 % (11.5-15.5)
[2022-06-29 04:10] VITALS: BP 140/67
[2022-06-29 04:34] LABS: ANION GAP 12 (6-22 (CALC)); BUN 41 mg/dL (8-23); BUN/CREATININE RATIO 60 (12-20 (CALC)); CARBON DIOXIDE 27 mmol/l (22-30); CHLORIDE 103 mmol/l (95-108); CREATININE 0.7 mg/dL (0.5-1.0); GFR FOR AFR.AMER. > 60 ML/MIN (>=60 (CALC)); GFR OTHER RACES > 60 ML/MIN (>=60 (CALC)); POTASSIUM 3.8 mmol/l (3.5-5.1); SODIUM 138 mmol/l (137-146)
[2022-06-29] MEDS ORDERED: VIBRAMYCIN100 M2 PO (09:52)
[2022-06-29] MEDS ORDERED: PREDNISONE10 MG PO (09:56)
[2022-06-29 09:58] VITALS: BP 124/63
[2022-06-29 11:03] VITALS: BP 129/55
--- NOTE | 2022-06-29 12:00 | NUR ---
PATIENT IN BED RESTING. PATIENT HAS DISCHARGE ORDERS. SPOKE TO PATIENT AND DAUGHTER. DAUGHTER IS NOW ON HER WAY TO [employer] SPECIALIST PATIENT. PATIENT IS FINISHING LUNCH AND THEN WILL BE READY TO GO AFTER. CALL LIGHT AND BEDSIDE TABLE WITH IN REACH AND I ADVISED PATIENT TO CALL WHEN SHE IS READY. PATIENT VERBALIZED UNDERSTANDING.
--- NOTE | 2022-06-29 14:34 | NUR ---
Discharge instructions given. Patient verbalizes understanding of same. Discharged in stable condition via Wheelchair to Home with family. All belongings sent with pt.
== END 2022-06-29 13:51 | disposition home health service (06) | DRG 308 ==
LOC: ED 18:21 → ICU 20:50 → MS2 06-26 15:38
PROVIDERS: Family Medicine; ADMIT Internal Medicine; ATTEND Internal Medicine
DX: I48.91 Unspecified atrial fibrillation (principal); J18.9 Pneumonia, unspecified organism; J96.01 Acute respiratory failure with hypoxia; E87.2 Acidosis; J44.1 Chronic obstructive pulmonary disease with (acute) exacerbation; J44.0 Chronic obstructive pulmonary disease with (acute) lower respiratory infection; I11.0 Hypertensive heart disease with heart failure; I50.9 Heart failure, unspecified; K21.9 Gastro-esophageal reflux disease without esophagitis; D50.0 Iron deficiency anemia secondary to blood loss (chronic); Z86.73 Personal history of transient ischemic attack (TIA), and cerebral infarction without residual deficits; Z95.1 Presence of aortocoronary bypass graft; Z95.818 Presence of other cardiac implants and grafts; Z20.822 Contact with and (suspected) exposure to COVID-19; D50.9 Iron deficiency anemia, unspecified

== ENCOUNTER 2022-11-29 09:47 | Observation (INO) | payer MEDICARE, OTHER ==
[~2022-11-29] VITALS: Ht 157.5 cm; Wt 60.0 kg
[~2022-11-29 09:47] MED LIST changes: +ASPIRIN ENTERIC81 MG PO; +ASPRUZYO SPRIN500 MG PO; +CALCI17 PO; +CO Q 1010 MG PO; +IRON28 M1 PO; +ISOSORB MONO20 MG PO; +MELATONIN10 M1 PO; +METOPROLOL SUCC50 MG PO; +MULTI VIT PO; +NORVASC2.5 M1 PO; +PREDNISONE10 MG PO; +REMERON7.5 MG PO; +VIBRAMYCIN100 M2 PO; +VITAMIN B PO; +VITAMIN C + PO
[2022-11-29 10:00] VITALS: BP 126/66
[2022-11-29 10:09] VITALS: BP 126/66
[2022-11-29 12:06] LABS: BASO% 0.7 % (0-3); EOS% 2.6 % (0-8); HEMATOCRIT 27.1 % (37.0-47.0); HEMOGLOBIN 7.8 g/dl (12.0-16.0); IMMATURE GRANULOCYTES 0.2 % (0.0-5.0); LYMPH% 6.6 % (15-41); MEAN CELL VOLUME 113.4 fL CALC (80.0-100.0); MEAN CORPUSCULAR HGB 32.6 pG CALC (26.0-32.0); MEAN CORPUSCULAR HGB CONC 28.8 g/dL CAL (32.0-36.0); MONO% 6.6 % (2-13); NEUT# 4.45 thou/uL (2.00-7.15); NEUT% 83.3 % (42-76); RED BLOOD COUNT 2.39 mill/uL (4.20-5.60); RED CELL DISTRI WIDTH 15.7 % (11.5-15.5)
[2022-11-29 12:12] LABS: BILIRUBIN, TOTAL 0.4 mg/dL (0.02-1.3); CREATININE 1.3 mg/dL (0.5-1.0); POTASSIUM 3.6 mmol/l (3.5-5.1); TOTAL PROTEIN 6.3 g/dL (6.3-8.2)
[2022-11-29 12:38] LABS: URINE BILIRUBIN - DIPSTICK NEGATIVE (NEGATIVE); URINE BLOOD DIPSTICK TRACE-INTACT (NEGATIVE); URINE COLOR YELLOW; URINE GLUCOSE - DIPSTICK NEGATIVE (NEGATIVE); URINE KETONE NEGATIVE (NEGATIVE); URINE PH 5.5 (4.5-8.0); URINE PROTEIN - DIPSTICK 30 mg/dL (NEG-TRACE); URINE UROBILINOGEN - DIPSTICK 0.2 E.U./dL (0.2)
[2022-11-29 12:39] LABS: URINE BACTERIA FEW hpf; URINE EPITHELIAL CELLS MODERATE EPI/hpf (0-FEW); URINE LEUK ESTERASE MODERATE (NEGATIVE); URINE NITRITE - DIPSTICK NEGATIVE (Negative); URINE RBC 0-2 RBC/hpf (0-5)
[2022-11-29 14:36] VITALS: BP 102/42
[2022-11-29 19:03] VITALS: BP 120/64
[2022-11-30] VITALS (8 sets, daily range): BP systolic 111–154; BP diastolic 56–80
[2022-11-30 05:40] LABS: BASO% 1.4 % (0-3); EOS% 5.6 % (0-8); HEMATOCRIT 27.9 % (37.0-47.0); HEMOGLOBIN 8.1 g/dl (12.0-16.0); IMMATURE GRANULOCYTES 0.5 % (0.0-5.0); LYMPH% 13.3 % (15-41); MEAN CORPUSCULAR HGB 32.5 pG CALC (26.0-32.0); MONO% 9.3 % (2-13); NEUT% 69.9 % (42-76); RED BLOOD COUNT 2.49 mill/uL (4.20-5.60); RED CELL DISTRI WIDTH 16.1 % (11.5-15.5)
[2022-11-30 05:51] LABS: ALBUMIN 3.9 g/dL (3.2-5.0); BILIRUBIN, TOTAL 0.4 mg/dL (0.02-1.3); CREATININE 1.3 mg/dL (0.5-1.0); POTASSIUM 3.9 mmol/l (3.5-5.1)
== END 2022-11-30 14:19 | disposition home health service (06) ==
LOC: MS2 09:47
PROVIDERS: Nurse Practitioner Family; ADMIT Internal Medicine; ATTEND Internal Medicine
PROC: 30233N1 Transfusion of Nonautologous Red Blood Cells into Peripheral Vein, Percutaneous Approach (ICD-10-PCS; principal; 2022-11-30)
DX: D62 Acute posthemorrhagic anemia (principal); I11.0 Hypertensive heart disease with heart failure; I50.9 Heart failure, unspecified; K92.2 Gastrointestinal hemorrhage, unspecified; I48.20 Chronic atrial fibrillation, unspecified; J44.9 Chronic obstructive pulmonary disease, unspecified; K21.9 Gastro-esophageal reflux disease without esophagitis; Z86.79 Personal history of other diseases of the circulatory system; Z95.1 Presence of aortocoronary bypass graft; Z95.818 Presence of other cardiac implants and grafts
CPT/HCPCS: G0328; J1756; P9016

== ENCOUNTER 2023-06-01 11:41 | Emergency (ER) | payer MEDICARE, OTHER ==
[2023-06-01] VITALS (7 sets, daily range): BP systolic 104–126; BP diastolic 52–65
[~2023-06-01] VITALS: Ht 157.5 cm; Wt 57.8 kg
[2023-06-01 13:56] LABS: BASO% 0.9 % (0-3); EOS% 3.2 % (0-8); HEMATOCRIT 33.1 % (37.0-47.0); HEMOGLOBIN 10.4 g/dl (12.0-16.0); IMMATURE GRANULOCYTES 0.2 % (0.0-5.0); LYMPH% 8.4 % (15-41); MEAN CELL VOLUME 108.2 fL CALC (80.0-100.0); MEAN CORPUSCULAR HGB CONC 31.4 g/dL CAL (32.0-36.0); MONO% 6.1 % (2-13); NEUT# 5.29 thou/uL (2.00-7.15); NEUT% 81.2 % (42-76); RED BLOOD COUNT 3.06 mill/uL (4.20-5.60); RED CELL DISTRI WIDTH 14.9 % (11.5-15.5)
[2023-06-01 14:31] LABS: ALBUMIN 4.3 g/dL (3.2-5.0); ALKALINE PHOSPHATASE 65 u/l (38-126); ANION GAP 13 (6-22 (CALC)); BUN 16 mg/dL (8-23); BUN/CREATININE RATIO 19 (12-20 (CALC)); CARBON DIOXIDE 31 mmol/l (22-30); CHLORIDE 100 mmol/l (95-108); CREATININE 0.8 mg/dL (0.5-1.0); GFR FOR AFR.AMER. > 60 ML/MIN (>=60 (CALC)); GFR OTHER RACES > 60 ML/MIN (>=60 (CALC)); POTASSIUM 3.3 mmol/l (3.5-5.1); SGOT/AST 30 u/l (9-36); SODIUM 140 mmol/l (137-146); TOTAL PROTEIN 7.1 g/dL (6.3-8.2)
[2023-06-01 14:32] LABS: BILIRUBIN, TOTAL 1.3 mg/dL (0.02-1.3)
[2023-06-01] MEDS ORDERED: IPRATROPIU0.5 MG/3 M IN (15:02)
[2023-06-01] MEDS ORDERED: DOXY-CAPS100 MG PO (15:02)
[2023-06-01] MEDS ORDERED: PREDNISONE50 MG PO (15:02)
== END 2023-06-01 15:35 | disposition home or self-care (01) ==
LOC: ED 11:41
PROVIDERS: Family Medicine
DX: J44.0 Chronic obstructive pulmonary disease with (acute) lower respiratory infection (principal); J20.9 Acute bronchitis, unspecified; I11.0 Hypertensive heart disease with heart failure; I50.9 Heart failure, unspecified; I48.91 Unspecified atrial fibrillation; Z95.818 Presence of other cardiac implants and grafts; Z20.822 Contact with and (suspected) exposure to COVID-19

== ENCOUNTER 2024-04-01 08:39 | Inpatient (IN) | payer MEDICARE, OTHER ==
[2024-04-01] VITALS (36 sets, daily range): BP systolic 90–178; BP diastolic 48–162
[~2024-04-01] VITALS: Ht 154.9 cm; Wt 51.0 kg
[~2024-04-01 08:39] MED LIST changes: +DOXY-CAPS100 MG PO; +ISOSORB MONO10 MG PO; +POT CHLORIDE10 ME5 PO; +PREDNISONE50 MG PO
[2024-04-01 09:12] LABS: BASO% 0.2 % (0-3); EOS% 0.1 % (0-8); HEMATOCRIT 30.7 % (37.0-47.0); HEMOGLOBIN 9.5 g/dl (12.0-16.0); IMMATURE GRANULOCYTES 0.4 % (0.0-5.0); LYMPH% 2.9 % (15-41); MEAN CORPUSCULAR HGB 34.7 pG CALC (26.0-32.0); MEAN CORPUSCULAR HGB CONC 30.9 g/dL CAL (32.0-36.0); MONO% 7.8 % (2-13); NEUT# 12.9 thou/uL (2.00-7.15); NEUT% 88.6 % (42-76); RED BLOOD COUNT 2.74 mill/uL (4.20-5.60); RED CELL DISTRI WIDTH 14.4 % (11.5-15.5)
[2024-04-01 09:24] LABS: ALBUMIN 4.3 g/dL (3.2-5.0); CREATININE 0.7 mg/dL (0.5-1.0); POTASSIUM 3.4 mmol/l (3.5-5.1); TOTAL PROTEIN 7.3 g/dL (6.3-8.2)
[2024-04-01 09:26] LABS: BILIRUBIN, TOTAL 1.9 mg/dL (0.02-1.3)
[2024-04-01] MEDS ORDERED: IPRATROPIUM-Albuterol 0.5MG-2.5MG/3 ML NEB ONE ×2 (11:30)
[2024-04-01] MEDS ORDERED: methylPREDNISolone SODIUM SUCC 125 MG/2 ML SDV IV ONE (11:30)
[2024-04-01] MEDS ORDERED: VANCOMYCIN HCL 1 GM in SODIUM CHLORIDE 0.9% 250 ML IV ONE (11:50)
[2024-04-01] MEDS ORDERED: SODIUM CHLORIDE 0.9% 1,000 ML IV ONE (11:50)
[2024-04-01] MEDS ORDERED: PIPERACILLIN Sodium-Tazobactam 3.375 GM in SODIUM CHLORIDE 0.9% 100 ML IV ONE (11:50)
[2024-04-01] MEDS ORDERED: VANCOMYCIN HCL 1 GM/VIAL IV ONE (11:59)
[2024-04-01] MEDS ORDERED: guaiFENesin-CODEINE 200-20 MG/10 ML UDC PO ONE (12:40)
[2024-04-01] MEDS ORDERED: FUROSEMIDE 40 MG/4 ML SDV IV ONE (14:45)
[2024-04-01] MEDS ORDERED: SODIUM CHLORIDE 0.9% 500 ML IV ONE (15:20)
[2024-04-01] MEDS ORDERED: DILTIAZEM HCL 125 MG in SODIUM CHLORIDE 0.9% 100 ML IV ONE (15:20)
[2024-04-01] MEDS ORDERED: DILTIAZEM HCL 25 MG/5 ML SDV IV ONE (15:20)
[2024-04-01] MEDS ORDERED: MAGNESIUM HYDROXIDE 30 ML UDC PO PRN (16:25)
[2024-04-01] MEDS ORDERED: ACETAMINOPHEN 325 MG/TAB PO PRN (16:25)
[2024-04-01] MEDS ORDERED: MELATONIN 3 MG/TAB PO PRN (16:40)
[2024-04-01] MEDS ORDERED: PIPERACILLIN Sodium-Tazobactam 3.375 GM in SODIUM CHLORIDE 0.9% 100 ML IV SCH (18:00)
[2024-04-01] MEDS ORDERED: LORazepam 2 MG/ML IV PRN (19:40)
[2024-04-01 19:41] LABS: URINE BILIRUBIN - DIPSTICK Negative (NEGATIVE); URINE BLOOD DIPSTICK Moderate (NEGATIVE); URINE GLUCOSE - DIPSTICK Negative (NEGATIVE); URINE KETONE Negative (NEGATIVE); URINE LEUK ESTERASE Negative (NEGATIVE); URINE NITRITE - DIPSTICK Negative (Negative); URINE PROTEIN - DIPSTICK 30 mg/dL (NEG-TRACE)
[2024-04-01 19:45] LABS: URINE COLOR Yellow; URINE WBC 0-2 WBC/hpf (0-5)
[2024-04-01 19:46] LABS: URINE SQUAMOUS EPITHELIAL CELL FEW EPI/hpf (0-FEW)
[2024-04-01] MEDS ORDERED: GUAIFENESIN 600 MG/TAB PO SCH (21:00)
[2024-04-01] MEDS ORDERED: CLARIFY DOSE IV SCH (21:00)
[2024-04-01] MEDS ORDERED: METOPROLOL TARTRATE 25 MG/TAB PO SCH (21:00)
[2024-04-01] MEDS ORDERED: methylPREDNISolone Sod Succ 40 MG/ML SDV IV SCH (21:00)
[2024-04-01] MEDS ORDERED: ENOXAPARIN SODIUM 40 MG/0.4 ML SYR SC SCH (21:00)
[2024-04-01] MEDS ORDERED: IPRATROPIUM-Albuterol 0.5MG-2.5MG/3 ML NEB SCH (23:00)
[2024-04-01] MEDS ORDERED: IPRATROPIUM BROMIDE 0.5 MG/2.5 ML SOL IN SCH (23:00)
[2024-04-01] MEDS ORDERED: LEVALBUTEROL HCL 1.25 MG/3 ML VIAL NEB SCH (23:00)
[2024-04-02] VITALS (25 sets, daily range): BP systolic 93–149; BP diastolic 50–76
[2024-04-02 06:31] LABS: BASO% 0.1 % (0-3); HEMOGLOBIN 8.7 g/dl (12.0-16.0); IMMATURE GRANULOCYTES 0.9 % (0.0-5.0); LYMPH% 1.9 % (15-41); MEAN CELL VOLUME 115.8 fL CALC (80.0-100.0); MEAN CORPUSCULAR HGB 33.6 pG CALC (26.0-32.0); MONO% 3.8 % (2-13); NEUT# 12.06 thou/uL (2.00-7.15); NEUT% 93.3 % (42-76); RED BLOOD COUNT 2.59 mill/uL (4.20-5.60); RED CELL DISTRI WIDTH 14.7 % (11.5-15.5)
[2024-04-02 06:51] LABS: ALBUMIN 3.5 g/dL (3.2-5.0); BILIRUBIN, TOTAL 1.3 mg/dL (0.02-1.3); CHOLESTEROL HDL RATIO 4.5 (<4.4 (CALC)); CREATININE 0.8 mg/dL (0.5-1.0); MAGNESIUM 1.8 mg/dL (1.6-2.3); POTASSIUM 3.5 mmol/l (3.5-5.1); TOTAL PROTEIN 6.1 g/dL (6.3-8.2)
[2024-04-02] MEDS ORDERED: PANTOPRAZOLE SODIUM Sesquihydr 40 MG/TAB PO SCH (09:00)
[2024-04-02] MEDS ORDERED: FUROSEMIDE 40 MG/4 ML SDV IV SCH ×2 (09:00→10:00)
[2024-04-02] MEDS ORDERED: METOPROLOL TARTRATE 5 MG/5 ML VIAL IV PRN (09:45)
[2024-04-02] MEDS ORDERED: LORazepam 2 MG/ML IV SCH (11:00)
[2024-04-02] MEDS ORDERED: VANCOMYCIN HCL 750 MG in SODIUM CHLORIDE 0.9% 235 ML IV SCH (16:00)
[2024-04-02] MEDS ORDERED: LORazepam 2 MG/ML IV PRN (17:00)
[2024-04-03] VITALS (23 sets, daily range): BP systolic 128–151; BP diastolic 64–117
[2024-04-03 05:07] LABS: BASO% 0.1 % (0-3); HEMOGLOBIN 8.6 g/dl (12.0-16.0); IMMATURE GRANULOCYTES 1.8 % (0.0-5.0); MEAN CELL VOLUME 113.8 fL CALC (80.0-100.0); MEAN CORPUSCULAR HGB CONC 30.7 g/dL CAL (32.0-36.0); MONO% 2.7 % (2-13); NEUT# 10.05 thou/uL (2.00-7.15); NEUT% 93.4 % (42-76); RED BLOOD COUNT 2.46 mill/uL (4.20-5.60); RED CELL DISTRI WIDTH 14.6 % (11.5-15.5)
[2024-04-03 05:10] LABS: ALBUMIN 3.5 g/dL (3.2-5.0); BILIRUBIN, TOTAL 1.2 mg/dL (0.02-1.3); CREATININE 1.1 mg/dL (0.5-1.0); MAGNESIUM 2.1 mg/dL (1.6-2.3); TOTAL PROTEIN 5.9 g/dL (6.3-8.2)
[2024-04-03] MEDS ORDERED: Pantoprazole Sodium 40 MG VIAL (Protonix) IV SCH (08:00)
[2024-04-03] MEDS ORDERED: METOPROLOL TARTRATE 5 MG/5 ML VIAL IV PRN (09:01)
[2024-04-03 09:35] LABS: POTASSIUM 2.8 mmol/l (3.5-5.1)
[2024-04-03] MEDS ORDERED: CEFEPIME HYDROCHLORIDE 1 GM in SODIUM CHLORIDE 0.9% 50 ML IV SCH (12:00)
[2024-04-03 12:16] LABS: HEMOGLOBIN 8.7 g/dl (12.0-16.0)
[2024-04-03 18:28] LABS: HEMATOCRIT 28.6 % (37.0-47.0); HEMOGLOBIN 8.6 g/dl (12.0-16.0)
[2024-04-03] MEDS ORDERED: METOPROLOL TARTRATE 50 MG/TAB PO SCH (21:00)
[2024-04-04] VITALS (41 sets, daily range): BP systolic 130–174; BP diastolic 63–101
[2024-04-04 06:12] LABS: ALBUMIN 3.7 g/dL (3.2-5.0); BILIRUBIN, TOTAL 1.1 mg/dL (0.02-1.3); CREATININE 1.1 mg/dL (0.5-1.0); MAGNESIUM 2.2 mg/dL (1.6-2.3); POTASSIUM 2.9 mmol/l (3.5-5.1); TOTAL PROTEIN 6.2 g/dL (6.3-8.2)
[2024-04-04 06:15] LABS: BASO% 0.1 % (0-3); HEMATOCRIT 29.5 % (37.0-47.0); HEMOGLOBIN 9.1 g/dl (12.0-16.0); LYMPH% 3.2 % (15-41); MEAN CELL VOLUME 112.2 fL CALC (80.0-100.0); MEAN CORPUSCULAR HGB 34.6 pG CALC (26.0-32.0); MEAN CORPUSCULAR HGB CONC 30.8 g/dL CAL (32.0-36.0); MONO% 3.3 % (2-13); NEUT# 12.04 thou/uL (2.00-7.15); NEUT% 85.6 % (42-76); RED BLOOD COUNT 2.63 mill/uL (4.20-5.60); RED CELL DISTRI WIDTH 14.8 % (11.5-15.5)
[2024-04-04 06:16] LABS: IMMATURE GRANULOCYTES 7.8 % (0.0-5.0)
[2024-04-04] MEDS ORDERED: POTASSIUM CHLORIDE 20MEQ 100 ML IV SCH ×2 (07:20→09:30)
[2024-04-04] MEDS ORDERED: amLODIPine BESYLATE 2.5 MG/TAB PO SCH (09:00)
[2024-04-04] MEDS ORDERED: FUROSEMIDE 40 MG/4 ML SDV IV SCH (09:00)
[2024-04-04] MEDS ORDERED: ISOSORBIDE MONONITRATE 30 MG TAB PO SCH (09:00)
[2024-04-04] MEDS ORDERED: ONDANSETRON HCl 4 MG/2 ML SDV IV PRN (09:05)
[2024-04-04] MEDS ORDERED: ARTIFICIAL TEARS SOLUTION 15 ML/BTL OU PRN (10:00)
[2024-04-04] MEDS ORDERED: VANCOMYCIN HCL 1 GM in SODIUM CHLORIDE 0.9% 250 ML IV SCH (16:00)
[2024-04-04] MEDS ORDERED: MIRTAZAPINE 15 MG/TAB PO SCH (21:00)
[2024-04-04] MEDS ORDERED: QUEtiapine FUMERATE 25 MG/TAB PO SCH (21:00)
[2024-04-04] MEDS ORDERED: YEAST (S. BOULARDII)(S. CEREVI 250 MG CAP PO SCH (21:00)
[2024-04-05] VITALS (43 sets, daily range): BP systolic 114–155; BP diastolic 60–92
[2024-04-05 05:39] LABS: BASO% 0.1 % (0-3); HEMATOCRIT 27.6 % (37.0-47.0); HEMOGLOBIN 8.7 g/dl (12.0-16.0); LYMPH% 4.5 % (15-41); MEAN CELL VOLUME 111.3 fL CALC (80.0-100.0); MEAN CORPUSCULAR HGB 35.1 pG CALC (26.0-32.0); MEAN CORPUSCULAR HGB CONC 31.5 g/dL CAL (32.0-36.0); MONO% 5.2 % (2-13); NEUT# 10.75 thou/uL (2.00-7.15); NEUT% 78.3 % (42-76); RED BLOOD COUNT 2.48 mill/uL (4.20-5.60); RED CELL DISTRI WIDTH 14.9 % (11.5-15.5)
[2024-04-05 05:47] LABS: IMMATURE GRANULOCYTES 11.9 % (0.0-5.0)
[2024-04-05 05:55] LABS: ALBUMIN 3.4 g/dL (3.2-5.0); BILIRUBIN, TOTAL 1.1 mg/dL (0.02-1.3); CREATININE 0.9 mg/dL (0.5-1.0); MAGNESIUM 2.3 mg/dL (1.6-2.3); POTASSIUM 3.2 mmol/l (3.5-5.1); TOTAL PROTEIN 5.9 g/dL (6.3-8.2)
[2024-04-05] MEDS ORDERED: methylPREDNISolone Sod Succ 40 MG/ML SDV IV SCH (09:00)
[2024-04-05] MEDS ORDERED: POTASSIUM CHLORIDE 20 MEQ/TAB PO SCH (09:30)
[2024-04-05] MEDS ORDERED: Heparin SODIUM (Porcine) 5,000 UNITS/ML SDV SC SCH (21:00)
[2024-04-06] VITALS (15 sets, daily range): BP systolic 124–158; BP diastolic 59–84
[2024-04-06 05:09] LABS: ALBUMIN 3.2 g/dL (3.2-5.0); BASO% 0.2 % (0-3); BILIRUBIN, TOTAL 0.8 mg/dL (0.02-1.3); CREATININE 0.9 mg/dL (0.5-1.0); EOS% 0.1 % (0-8); HEMATOCRIT 28.4 % (37.0-47.0); HEMOGLOBIN 8.6 g/dl (12.0-16.0); LYMPH% 4.3 % (15-41); MAGNESIUM 2.3 mg/dL (1.6-2.3); MEAN CELL VOLUME 113.6 fL CALC (80.0-100.0); MEAN CORPUSCULAR HGB 34.4 pG CALC (26.0-32.0); MEAN CORPUSCULAR HGB CONC 30.3 g/dL CAL (32.0-36.0); MONO% 4.1 % (2-13); NEUT# 11.38 thou/uL (2.00-7.15); NEUT% 77.1 % (42-76); RED BLOOD COUNT 2.5 mill/uL (4.20-5.60); RED CELL DISTRI WIDTH 14.9 % (11.5-15.5); TOTAL PROTEIN 5.4 g/dL (6.3-8.2)
[2024-04-06 05:11] LABS: IMMATURE GRANULOCYTES 14.2 % (0.0-5.0)
[2024-04-06 05:35] LABS: POTASSIUM 3.9 mmol/l (3.5-5.1)
[2024-04-06] MEDS ORDERED: LEVALBUTEROL HCL 1.25 MG/3 ML VIAL NEB PRN (08:41)
[2024-04-06] MEDS ORDERED: IPRATROPIUM BROMIDE 0.5 MG/2.5 ML SOL IN PRN (08:41)
[2024-04-06] MEDS ORDERED: FUROSEMIDE 40 MG/TAB PO SCH (09:00)
[2024-04-07] VITALS (12 sets, daily range): BP systolic 125–165; BP diastolic 65–132
[2024-04-07 07:03] LABS: ALBUMIN 3.3 g/dL (3.2-5.0); BILIRUBIN, TOTAL 0.9 mg/dL (0.02-1.3); CREATININE 0.8 mg/dL (0.5-1.0); MAGNESIUM 2.1 mg/dL (1.6-2.3); POTASSIUM 3.6 mmol/l (3.5-5.1); TOTAL PROTEIN 5.5 g/dL (6.3-8.2)
[2024-04-07 07:45] LABS: BASO% 0.1 % (0-3); EOS% 2.2 % (0-8); HEMATOCRIT 29.5 % (37.0-47.0); LYMPH% 4.3 % (15-41); MEAN CELL VOLUME 114.8 fL CALC (80.0-100.0); MEAN CORPUSCULAR HGB CONC 30.5 g/dL CAL (32.0-36.0); MONO% 3.1 % (2-13); NEUT# 13.87 thou/uL (2.00-7.15); RED BLOOD COUNT 2.57 mill/uL (4.20-5.60); RED CELL DISTRI WIDTH 15.5 % (11.5-15.5)
[2024-04-07 08:13] LABS: IMMATURE GRANULOCYTES 12.3 % (0.0-5.0)
[2024-04-07] MEDS ORDERED: amLODIPine BESYLATE 5 MG/TAB PO SCH (09:00)
[2024-04-07 12:47] LABS: HEMATOCRIT 30.3 % (37.0-47.0); HEMOGLOBIN 9.2 g/dl (12.0-16.0)
[2024-04-07 16:38] LABS: HEMATOCRIT 30.5 % (37.0-47.0); HEMOGLOBIN 9.3 g/dl (12.0-16.0); MEAN CELL VOLUME 113.8 fL CALC (80.0-100.0); MEAN CORPUSCULAR HGB 34.7 pG CALC (26.0-32.0); MEAN CORPUSCULAR HGB CONC 30.5 g/dL CAL (32.0-36.0); RED BLOOD COUNT 2.68 mill/uL (4.20-5.60); RED CELL DISTRI WIDTH 15.5 % (11.5-15.5)
[2024-04-08] VITALS: BP 139/65
[2024-04-08 04:00] VITALS: BP 144/65
[2024-04-08 04:47] VITALS: BP 144/65
[2024-04-08 05:44] LABS: BASO% 0.1 % (0-3); EOS% 2.6 % (0-8); HEMATOCRIT 29.9 % (37.0-47.0); HEMOGLOBIN 9.1 g/dl (12.0-16.0); LYMPH% 3.7 % (15-41); MEAN CORPUSCULAR HGB CONC 30.4 g/dL CAL (32.0-36.0); NEUT# 14.49 thou/uL (2.00-7.15); NEUT% 82.7 % (42-76); RED BLOOD COUNT 2.6 mill/uL (4.20-5.60); RED CELL DISTRI WIDTH 15.7 % (11.5-15.5)
[2024-04-08 05:55] LABS: ALBUMIN 3.2 g/dL (3.2-5.0); BILIRUBIN, TOTAL 0.8 mg/dL (0.02-1.3); MAGNESIUM 1.9 mg/dL (1.6-2.3); POTASSIUM 3.6 mmol/l (3.5-5.1); TOTAL PROTEIN 5.4 g/dL (6.3-8.2)
[2024-04-08 05:59] LABS: CREATININE 0.6 mg/dL (0.5-1.0); IMMATURE GRANULOCYTES 7.9 % (0.0-5.0)
[2024-04-08] MEDS ORDERED: AMOX/K CLAV875 M1 PO (06:19)
[2024-04-08 06:55] VITALS: BP 154/64
[2024-04-08 10:25] VITALS: BP 140/61
[2024-04-08] MEDS ORDERED: EPOETIN ALFA-EPBX 4,000 UNIT/ML VIAL SC SCH (11:00)
[2024-04-08] MEDS ORDERED: EPOETIN ALFA-EPBX 20,000 UNIT/ML VIAL SC SCH (11:00)
[2024-04-09] MEDS ORDERED: PANTOPRAZOLE SODIUM Sesquihydr 40 MG/TAB PO SCH (09:00)
== END 2024-04-08 15:05 | DRG 871 ==
LOC: ED 08:39 → ED-I 14:30 → ED 14:42 → ICU 14:43 → MS2 14:43
PROVIDERS: Family Medicine; ADMIT Student in an Organized Health Care Education/Training Program; ATTEND Student in an Organized Health Care Education/Training Program
PROC: 5A09457 Assistance with Respiratory Ventilation, 24-96 Consecutive Hours, Continuous Positive Airway Pressure (ICD-10-PCS; principal; 2024-04-01)
PROC: 06JYXZZ Inspection of Lower Vein, External Approach (ICD-10-PCS; 2024-04-01)
PROC: 05JYXZZ Inspection of Upper Vein, External Approach (ICD-10-PCS; 2024-04-01)
PROC: 02HV33Z Insertion of Infusion Device into Superior Vena Cava, Percutaneous Approach (ICD-10-PCS; 2024-04-01)
PROC: 5A0945A Assistance with Respiratory Ventilation, 24-96 Consecutive Hours, High Flow/Velocity Cannula (ICD-10-PCS; 2024-04-02)
DX: A41.9 Sepsis, unspecified organism (principal); I21.A1 Myocardial infarction type 2; J18.9 Pneumonia, unspecified organism; J96.01 Acute respiratory failure with hypoxia; J96.22 Acute and chronic respiratory failure with hypercapnia; J44.0 Chronic obstructive pulmonary disease with (acute) lower respiratory infection; J44.1 Chronic obstructive pulmonary disease with (acute) exacerbation; R65.20 Severe sepsis without septic shock; I11.0 Hypertensive heart disease with heart failure; I50.9 Heart failure, unspecified; I25.10 Atherosclerotic heart disease of native coronary artery without angina pectoris; I48.91 Unspecified atrial fibrillation; K21.9 Gastro-esophageal reflux disease without esophagitis; R31.9 Hematuria, unspecified; D72.829 Elevated white blood cell count, unspecified; T38.0X5A Adverse effect of glucocorticoids and synthetic analogues, initial encounter; Z95.1 Presence of aortocoronary bypass graft; Z90.2 Acquired absence of lung [part of]; Z95.818 Presence of other cardiac implants and grafts; Z87.19 Personal history of other diseases of the digestive system; Z87.01 Personal history of pneumonia (recurrent); Z85.118 Personal history of other malignant neoplasm of bronchus and lung; Z20.822 Contact with and (suspected) exposure to COVID-19; Z87.891 Personal history of nicotine dependence
CPT/HCPCS: J0692; J1650; J2060; J2470; J3370; Q5106 EC; Q9967

== ENCOUNTER 2024-04-21 11:50 | Inpatient (IN) | payer MEDICARE, OTHER ==
[~2024-04-21] VITALS: Ht 154.9 cm; Wt 52.3 kg
[2024-04-21] VITALS (40 sets, daily range): BP systolic 96–151; BP diastolic 47–78
[~2024-04-21 11:50] MED LIST changes: +AMOX/K CLAV875 M1 PO; +ROCURONIUM BROMIDE 10 MG/ML 5ML VIAL IV ONE
--- NOTE | 2024-04-21 11:50 | NUR ---
PATIENT ARRIVES VIA EMS WITH ROSC IN A-FIB
[2024-04-21] MEDS ORDERED: SODIUM CHLORIDE 0.9% 1,000 ML IV ONE (12:30)
[2024-04-21] MEDS ORDERED: AMIODARONE HCL IV ONE (12:35)
[2024-04-21] MEDS ORDERED: SODIUM CHLORIDE IV ONE (12:35)
[2024-04-21] MEDS ORDERED: NOREPINEPHRINE BITARTRATE 4 MG in SODIUM CHLORIDE 0.9% 250 ML IV SCH (12:35)
[2024-04-21] MEDS ORDERED: PROPOFOL 100 ML IV SCH (12:35)
[2024-04-21 12:38] LABS: BASO% 0.4 % (0-3); EOS% 0.3 % (0-8); HEMOGLOBIN 7.3 g/dl (12.0-16.0); IMMATURE GRANULOCYTES 3.7 % (0.0-5.0); LYMPH% 16.2 % (15-41); MEAN CELL VOLUME 108.2 fL CALC (80.0-100.0); MEAN CORPUSCULAR HGB 31.6 pG CALC (26.0-32.0); MEAN CORPUSCULAR HGB CONC 29.2 g/dL CAL (32.0-36.0); NEUT# 7.25 thou/uL (2.00-7.15); NEUT% 77.4 % (42-76); RED BLOOD COUNT 2.31 mill/uL (4.20-5.60); RED CELL DISTRI WIDTH 27.4 % (11.5-15.5)
[2024-04-21 12:48] LABS: ALBUMIN 2.9 g/dL (3.2-5.0); BILIRUBIN, TOTAL 1.1 mg/dL (0.02-1.3); POTASSIUM 3.6 mmol/l (3.5-5.1)
[2024-04-21] MEDS ORDERED: PIPERACILLIN Sodium-Tazobactam 3.375 GM in SODIUM CHLORIDE 0.9% 100 ML IV ONE (13:15)
[2024-04-21] MEDS ORDERED: VANCOMYCIN HCL 1 GM in SODIUM CHLORIDE 0.9% 250 ML IV ONE (13:15)
[2024-04-21] MEDS ORDERED: DEXAMETHASONE SOD. PHOSPHATE 10 MG/ML VIAL IV ONE (13:15)
[2024-04-21] MEDS ORDERED: ROCURONIUM BROMIDE 10 MG/ML 5ML VIAL IV ONE (14:05)
[2024-04-21] MEDS ORDERED: SODIUM CHLORIDE 0.9% 500 ML IV ONE ×2 (14:10→17:25)
[2024-04-21] MEDS ORDERED: amioDARONE HCl 450 MG in SODIUM CHLORIDE 250 ML IV ONE (14:10)
[2024-04-21] MEDS ORDERED: CEFEPIME HYDROCHLORIDE 2 GM in SODIUM CHLORIDE 0.9% 100 ML IV ONE (14:10)
[2024-04-21] MEDS ORDERED: SODIUM CHLORIDE 250 ML IV ONE (14:15)
[2024-04-21] MEDS ORDERED: SODIUM CHLORIDE 0.9% 1,000 ML IV PRN (15:30)
[2024-04-21] MEDS ORDERED: Pantoprazole Sodium 40 MG VIAL (Protonix) IV SCH (16:00)
--- NOTE | 2024-04-21 16:00 | NUR ---
Patient came up from ED with RN and RT. Patient intubated, on propofol at 5, levo at 14 to maintain MAP greater than 65 and amio gtts. Patient is unresponsive to painful stimuli, pupils reactive but sluggish. Whiteside in place. Patient has wound on coccyx and wound on chest. Pictures taken. Family at bedside. NG tube advanced per XR suggestions. New XR ordered. All needs addressed and questions answered.
[2024-04-21] MEDS ORDERED: amioDARONE HCl 450 MG in SODIUM CHLORIDE 250 ML IV PRN (16:25)
[2024-04-21] MEDS ORDERED: NOREPINEPHRINE BITARTRATE 4 MG in SODIUM CHLORIDE 0.9% 250 ML IV PRN (16:25)
--- NOTE | 2024-04-21 18:00 | NUR ---
Patient is resting in bed, remains unresponsive to painful stimuli. On vent at 40%. Prop, levo, amio and IV fluids running as ordered. Dr Pretty at bedside speaking to family. Order to transfuse 1 unit of pRBCs. Type and screen done. Lab states that the patient has previous antibodies so it may take more time than usual until blood is ready. Whiteside in place, AFIB on tele monitor. All needs addressed.
--- NOTE | 2024-04-21 20:00 | NUR ---
pt assessed , appearsa to be chewing on ET tube, titrated up propofol for RASS-2, decreasing levo, daughter Alivia villafuerte at bedside. updated to plan of care. on vent , no restraints needed. amiodarone changed to 0.5 for 18hrs per protocol. IVF NS going at 100cc/hr. pt turned. urine output adequate. afebrile. covid precautions taken door shit, cll ryan within reach. on child monitor in AFIB.
--- NOTE | 2024-04-21 22:00 | NUR ---
pt assessed abdomen distended soft hypoactive BS LLQ other quads absent , NG tube to low intermittant suction, SCDs appled heels elevated on a pillow PT turned. titrating down Levo , amio at 0.5, IVF going at 100cc, goldstein drainaing marginal clear yellow. rass-2. call ryan within reach all monitor alarms on . daughter at [facility]
[2024-04-22] VITALS (88 sets, daily range): BP systolic 93–148; BP diastolic 50–73
--- NOTE | 2024-04-22 | NUR ---
pt ssesseed , absent to hypoactive BS MD aware., NG to low intermisttant , pt turned , no blood noted form bottom . awaiting unit of blood to transfuse. prop at 15, mouth care done. all monitors on , daugheter at bedside.
[2024-04-22] MEDS ORDERED: CEFEPIME HYDROCHLORIDE 2 GM in SODIUM CHLORIDE 0.9% 100 ML IV SCH (02:00)
--- NOTE | 2024-04-22 02:00 | NUR ---
pt turned , titrating down levo, propofol at 15. IVF NS at 100cc/hr. mouthcare done , new propofol tubing , scds on. afebrile. pt comfotable on the vent , RR easy , no distress. sats mid to high 90s. pt suctioned for scant red.
--- NOTE | 2024-04-22 03:08 | NUR ---
blood transfusion started approx 30 min ago daughter Alivia Pantoja updated to plan of care with blood transfusion and bs hypoactive .
--- NOTE | 2024-04-22 04:00 | NUR ---
1 unit of blood transfused , titrating doen levo. prop at 15, pt appears comfortable on the ventilator. Rass-2. pt turned , heel floated. IJ intact. daugheter at bedside BS very hypoactive , LLQ heard scant BS. other quads absent. call ryan within reach. all monitors on , AFIB rate controlled on amiodarone gtt at 0.5 , will end at 2pm today finishing 18 hrs per protocol.
[2024-04-22 05:24] LABS: BASO% 0.1 % (0-3); HEMATOCRIT 29.4 % (37.0-47.0); IMMATURE GRANULOCYTES 0.6 % (0.0-5.0); LYMPH% 2.2 % (15-41); MEAN CELL VOLUME 102.8 fL CALC (80.0-100.0); MEAN CORPUSCULAR HGB 31.5 pG CALC (26.0-32.0); MEAN CORPUSCULAR HGB CONC 30.6 g/dL CAL (32.0-36.0); MONO% 2.3 % (2-13); NEUT# 11.75 thou/uL (2.00-7.15); NEUT% 94.8 % (42-76); RED BLOOD COUNT 2.86 mill/uL (4.20-5.60); RED CELL DISTRI WIDTH 24.9 % (11.5-15.5)
[2024-04-22 05:40] LABS: C-REACTIVE PROTEIN 5.4 mg/dL (0-0.9); CREATININE 1.6 mg/dL (0.5-1.0); POTASSIUM 3.4 mmol/l (3.5-5.1); TOTAL PROTEIN 5.3 g/dL (6.3-8.2)
--- NOTE | 2024-04-22 05:45 | NUR ---
pt assessed, RT drawing blood gas. Labs drawn from line with all gtts stopped and 10cc waste, no blood from botttom. urine output marginal 60-80Q2, IVF going at 100cc/ hr Levo off bp good with a mean of 70. HR 80 AFIB, rare PVC and PAC seen . daughter at bedside. report pt has been having black stool for a while. all monitors on and alarms. all safety measures in place.
--- NOTE | 2024-04-22 07:45 | NUR ---
Report received from nurse shift nurse. Patient is resting in bed, family at bedside. Patient withdrawls from painful stimuli and opens eyes at times. Does not follow commands. Radiology called and said NG tube needs advanced. Replaced NG with OG tube. Per ausculation, tube is in stomach. XR ordered. Levo was able to be stopped overnight. Prop, amio and IV fluids running. Whiteside in place. VS WNL, AFIB on tele monitor. All needs addressed at this time. Dr Pretty at bedside.
[2024-04-22] MEDS ORDERED: DEXAMETHASONE SOD. PHOSPHATE 10 MG/ML VIAL IV SCH (09:00)
[2024-04-22] MEDS ORDERED: POTASSIUM CHLORIDE 20MEQ 100 ML IV SCH (09:00)
[2024-04-22] MEDS ORDERED: DEXAMETHASONE SODIUM PHOSPHATE PF 10 MG/ML SDV IV SCH (09:00)
[2024-04-22] MEDS ORDERED: PROPOFOL 100 ML IV SCH (09:20)
--- NOTE | 2024-04-22 10:00 | NUR ---
Restarted Levophed to maintain MAP greater than 65. Patient remains intubated and on vent at 40%, withdrawls from pain, no cough/gag. Does not follow commands. IV fluids, amio and prop running as ordered. AFIB on tele monitor, goldstein in place. OG in place connected to LIS. All needs addressed at this time.
--- NOTE | 2024-04-22 12:00 | NUR ---
Patient is resting in bed, remains intubated and on vent at 40%. Sedation turned down to 5. Patient withdrawls from painful stimuli but does not open eyes or follow commands. Repositioned. Whiteside in place, VS WNL, AFIB on monitor. IV fluids, amio, propofol and levo running as ordered. Family remains at bedside. All needs addressed at this time.
--- NOTE | 2024-04-22 14:00 | NUR ---
Patient is resting in bed, remains intubated and on vent at 40%. Patient only responds to painful stimuli, does not follow commands. Opens eyes occasionally. Cardiology EFFICIENCY MANAGER at bedside. No new orders at this time. VS WNL, AFIB on tele monitor, goldstein in place. Levo, propofol, IV fluids and amio drips running as ordered. All needs addressed at this time.
[2024-04-22] MEDS ORDERED: AMIODARONE 200 MG/TAB VT SCH (15:30)
--- NOTE | 2024-04-22 17:15 | NUR ---
Tele health consultion with Dr Estrada char dust cleaner and salvager done. Daughter was at bedside and questions answered by MD. Sedation currently off per MD orders.
--- NOTE | 2024-04-22 18:00 | NUR ---
Patient is resting in bed, remains intubated and on vent at 40%. Patient only responds to painful stimuli, does not follow commands. Opens eyes occasionally. VS WNL, AFIB on tele monitor, goldstein in place. Levo AND IV fluids running as ordered. All needs addressed at this time.
--- NOTE | 2024-04-22 20:00 | NUR ---
pt assessed, BS, hypoactive. pt off sedation since 5pm per day RN report. no ability to follow commands, babinski positive , big toe turns up and out. eyes fixed looking up and to the left. pupils 4 and sluggish. no blink to threat but spontaenously blinks. when cleaning mouth or stimmulated pt has decorticate posturing. all signs explained to family at bedside pt's 2 daughter and son. son is a chiropractor and tested pts deep tendon reflex with RN which was negative , no reflex seen. in lower leg testd on ankles , with scds off and lower legs elevated on a pillow. Pt turned repositioned on the ventilator. when mouth cleaned , no gag response to note. minimal urine output, day RN stated attending MD Bentley aware. IV fluids going at 100cc/hr . titrating down levo.
[2024-04-23] VITALS (21 sets, daily range): BP systolic 88–126; BP diastolic 48–73
--- NOTE | 2024-04-23 | NUR ---
pt assessed. low urine output. all monitors on . cafily at bedside no change in exam , checked for incontinence pt clean.
--- NOTE | 2024-04-23 00:34 | NUR ---
pt breathing 23/min looking labored on vent RR rate n vent 18 pt appears to be using accessory muscles. spoke with RT who is ajusting vent .
--- NOTE | 2024-04-23 00:45 | NUR ---
fluids decreased to 30cc/ hr enlight of respiration pattern and diminished lung sunds , poor cardiac history and low rine output of approx 10cc/hr. spoke with daughter and educated on pt current exam RT at bedside sjusting ventilator for pt comfort , SATS 98-100 RR23-27 on vent , vent rate 18. Same neurologic exam as at 2000.
--- NOTE | 2024-04-23 01:58 | NUR ---
pt resting comfortably, pts 3 children sleeping in comfortbaly recliners at bedside, abx hung, no change in assessment.
[2024-04-23] MEDS ORDERED: CEFEPIME HYDROCHLORIDE 1 GM in SODIUM CHLORIDE 0.9% 50 ML IV SCH (02:00)
[2024-04-23] MEDS ORDERED: CEFEPIME HYDROCHLORIDE 2 GM in SODIUM CHLORIDE 0.9% 100 ML IV SCH (02:00)
--- NOTE | 2024-04-23 04:00 | NUR ---
pt assessed all assessment paramaters, unchanged, goldstein draing approx 10 cc Q2, goldstein drainang approx 10cc/hr, IVF at 50cc/hr. RR easier on the vent. all monitors on all safety measures in [facility] hospit[facility], 3 children at bedside.
[2024-04-23 05:24] LABS: HEMATOCRIT 27.4 % (37.0-47.0); HEMOGLOBIN 8.7 g/dl (12.0-16.0); MEAN CELL VOLUME 101.9 fL CALC (80.0-100.0); MEAN CORPUSCULAR HGB 32.3 pG CALC (26.0-32.0); MEAN CORPUSCULAR HGB CONC 31.8 g/dL CAL (32.0-36.0); RED BLOOD COUNT 2.69 mill/uL (4.20-5.60); RED CELL DISTRI WIDTH 25.6 % (11.5-15.5)
--- NOTE | 2024-04-23 05:35 | NUR ---
rounded on pt. Fluids going at 50cc/hr. on ventilator, assessment unchanged. family at bedside. all monitors on and safety measures in place.
[2024-04-23 06:06] LABS: ALBUMIN 2.8 g/dL (3.2-5.0); BILIRUBIN, TOTAL 0.9 mg/dL (0.02-1.3); CREATININE 2.1 mg/dL (0.5-1.0)
[2024-04-23 06:13] LABS: MAGNESIUM 1.2 mg/dL (1.6-2.3); POTASSIUM 4.5 mmol/l (3.5-5.1)
--- NOTE | 2024-04-23 06:30 | NUR ---
son and daughters updated to kidney lab values and K and he reason why the urine output is low.
--- NOTE | 2024-04-23 07:30 | NUR ---
DR. AMATO AT BEDSIDE TO ASSESS PT AND SPEAK WITH FAMILY.
[2024-04-23] MEDS ORDERED: HYOSCYAMINE SULFATE SL PRN (07:45)
[2024-04-23] MEDS ORDERED: LORazepam 2 MG/ML IV PRN (07:45)
[2024-04-23] MEDS ORDERED: MORPHINE SULFATE 4 MG/ML VIAL IV PRN (07:45)
--- NOTE | 2024-04-23 08:00 | NUR ---
DR. AMATO SPOKE WITH FAMILY THIS MORNING REGARDING TERMINAL EXTUBATION. FAMILY IN AGGREEANCE AND ALL AT BEDSIDE. IV MORPHINE AND ATIVAN ADMINISTERED IV PER MAR FOR PT COMFORT. RT AT BEDSIDE AND TERMINAL EXTUBATION AT 0758. FAMILY AT BEDSIDE AND EDUCATED ON DYING PROCESS BY ICU DIRECTOR Leilani FERRER. COMFORT CART AVAILABLE FOR FAMILY.
--- NOTE | 2024-04-23 10:00 | NUR ---
NO CHANGES TO PT STATUS. REMAINS ON RA, AGONAL BREATHING. FAMILY REMAINS AT BEDSIDE. TACHYCARDIC AND O2SAT IN 80'S.
--- NOTE | 2024-04-23 12:00 | NUR ---
NO CHANGES TO PT STATUS. HR LOW 100'S. O2SAT 81%. FAMILY AT BEDSIDE AND DENIES ANY NEEDS AT THIS TIME.
--- NOTE | 2024-04-23 12:44 | NUR ---
DR. AMATO AT BEDSIDE TO ASSESS PT AND SPEAK WOITH FAMILY.
--- NOTE | 2024-04-23 14:39 | NUR ---
DR. KAYE AT BEDSIDE TO SEE PT AND SPEAK WITH FAMILY.
--- NOTE | 2024-04-23 16:00 | NUR ---
PT REPOSITIONED FOR COMFORT. FAMILY EDUCATED THAT MOVEMENT OF PT MAY HAVE EFFECT ON CURRENT VS.
--- NOTE | 2024-04-23 20:00 | NUR ---
pt assessed, pt is in the process of end of life end of life care, turning pt , mouthcare , levsin and giving morphine and ativan Q2 . pt appears comfortable, RR are easy .3 daughters and son at bedside.
--- NOTE | 2024-04-23 22:00 | NUR ---
pt resting comfortably, end of life care continues, pt on the monitor HR 119 sats 70s. Pt not on BP cuff for end of life care. family at bedside.
--- NOTE | 2024-04-24 | NUR ---
pt turned family at bedside. pt medicating for end of life care with ativan and morphine. RR easy minimal secretions. levsin has been given.
--- NOTE | 2024-04-24 02:00 | NUR ---
pt had asystole and passed at 0155, Dr. Barnard and Damon RN were notified via [employer] supervisor Marybeth was notified. [facility] was called Lottie Brown Reference number [id number]. [facility] stated pt is not suitable due to age and being COVID +. [employer] called for service to milk pickup driver the body. end of life post mortum care performed, Left IV out of hand and right IJ out. goldstein removed.
== END 2024-04-24 05:05 | disposition expired | DRG 208 ==
LOC: ED 11:50 → ED-I 13:57 → ED 14:38 → ICU 14:39
PROVIDERS: Family Medicine; ADMIT Internal Medicine; ATTEND Internal Medicine
PROC: 05HM33Z Insertion of Infusion Device into Right Internal Jugular Vein, Percutaneous Approach (ICD-10-PCS; principal; 2024-04-21)
PROC: 5A1945Z Respiratory Ventilation, 24-96 Consecutive Hours (ICD-10-PCS; 2024-04-21)
PROC: 0T9B70Z Drainage of Bladder with Drainage Device, Via Natural or Artificial Opening (ICD-10-PCS; 2024-04-21)
PROC: 3E043XZ Introduction of Vasopressor into Central Vein, Percutaneous Approach (ICD-10-PCS; 2024-04-21)
PROC: 30243N1 Transfusion of Nonautologous Red Blood Cells into Central Vein, Percutaneous Approach (ICD-10-PCS; 2024-04-22)
DX: U07.1 COVID-19 (principal); J12.82 Pneumonia due to coronavirus disease 2019; J96.01 Acute respiratory failure with hypoxia; I48.19 Other persistent atrial fibrillation; I50.32 Chronic diastolic (congestive) heart failure; E87.20 Acidosis, unspecified; N17.9 Acute kidney failure, unspecified; J44.1 Chronic obstructive pulmonary disease with (acute) exacerbation; J44.0 Chronic obstructive pulmonary disease with (acute) lower respiratory infection; I46.8 Cardiac arrest due to other underlying condition; I49.01 Ventricular fibrillation; I95.9 Hypotension, unspecified; I11.0 Hypertensive heart disease with heart failure; I25.118 Atherosclerotic heart disease of native coronary artery with other forms of angina pectoris; I08.1 Rheumatic disorders of both mitral and tricuspid valves; D50.9 Iron deficiency anemia, unspecified; R91.1 Solitary pulmonary nodule; Z95.1 Presence of aortocoronary bypass graft; Z95.818 Presence of other cardiac implants and grafts; Z90.2 Acquired absence of lung [part of]; Z66 Do not resuscitate; Z87.19 Personal history of other diseases of the digestive system; Z51.5 Encounter for palliative care
CPT/HCPCS: J0282; J0692; J1100; J2060; J2470; P9016; Q9967